=== PATIENT | male | born 1965 | race American Indian/Alaskan Native ===

== ENCOUNTER 2018-04-07 09:07 | Day surgery (SDC) | payer OTHER ==
[2018-04-02 11:40] VITALS: BMI 39.4
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
[~2018-04-07 09:07] MED LIST: LACTATED RINGERS 1,000 ML IV SCH; LIDOCAINE 1% 20 ML VIAL (10MG/ML) FOR IV START INTRADERMA PRN; MIDAZOLAM 2 MG/2 ML VIAL IV PRN
[2018-04-07 11:52] VITALS: TEMP 98.6
[2018-04-07] MEDS ORDERED: PROPOFOL 10 MG/ML 20 ML VIAL IV ONE (12:48)
--- NOTE | 2018-04-07 13:26 | P.PCN ---
Date of Procedure: 04/07/18 Description of Procedure: PREOPERATIVE DIAGNOSIS: Colonoscopy screening, first POSTOPERATIVE DIAGNOSIS: Colonoscopy screening, first Personal history of colon polyps. Multiple tubular adenomas throughout the colon. External hemorrhoids, grade 3. OPERATION: Colonoscopy to the ileocecal valve and appendiceal orifice. Colonoscopy with multiple hot snare polypectomies Colonoscopy with multiple cold forceps biopsies. SURGEON: Maye Kuhn MD. ANESTHESIA: MAC. INDICATIONS: The patient is a 53-year-old male who presents for his first colonoscopy screening. Benefits and risks were described and informed consent was obtained. DESCRIPTION OF PROCEDURE: The patient had undergone Gatorade, MiraLAX and Dulcolax prep. He had been brought into the operating room and laid in the left lateral decubitus position. The prostate was smooth and without abnormality .After adequate intravenous sedation, the rectum was examined with 2% lidocaine jelly. External hemorrhoids were encountered. The rectal tone was within normal limits. No lesions were palpated in the rectal vault. An Olympus colonoscope was advanced until the ileocecal valve and appendiceal orifice were clearly viewed. Abdominal wall pressure was applied to the abdomen to obtain views. The prep was fair with visualization of the mucosal folds. The scope was removed with visualization of each mucosal fold. No large scattered diverticulosis was encountered. Multiple colonic polyps were found and cold forcep biopsy or snare polypectomy. Localize colitis and biopsies were taken of the cecum. Retroflexion of the scope demonstrated grade 1 internal hemorrhoids without active bleeding or inflammation. The colon was desufflated. The patient had tolerated the procedure well. Withdrawal time was over 6 minutes. FINDINGS: Internal hemorrhoids, grade 1 External hemorrhoids, grade 3. No arteriovenous malformations. No large sigmoid diverticulosis Removal of 6 polyps: - Snare polypectomy 60 cm from the anal verge, 8 mm tubular adenoma polyp, descending colon - Snare polypectomy 50 cm from the anal verge, 12 mm flat villous adenoma polyp , descending colon - Snare polypectomy 45 cm from the anal verge, 10 mm tubular adenoma polyp, descending colon - Snare polypectomy 35 cm from the anal verge, 11 mm tubular adenoma polyp, sigmoid colon - Snare polypectomy 20 cm from the anal verge, 12 mm flat villous adenoma polyp , sigmoid colon - Cold forceps biopsy at 70 cm from the anal verge, 5 mm polyp, transverse colon Cold biopsies obtained of the cecum to evaluate for colitis RECOMMENDATIONS: Given severity of tubular adenomas, recommend repeat colonoscopy 1 year, 2019. Plan - Discharge Summary New Discharge Prescriptions: No Action Cetirizine HCl [Zyrtec] 10 mg PO DAILY Budesonide-Formot 160-4.5 Mcg [Symbicort 160-4.5 Mcg Inhaler] 2 puff INHALATION BID Lisinopril-Hctz 10-12.5 mg [Zestoretic 10-12.5] 1 tab PO QAM Discharge Medication List Budesonide-Formot 160-4.5 Mcg [Symbicort 160-4.5 Mcg Inhaler] 2 puff INHALATION BID 04/02/18 [History] Cetirizine HCl [Zyrtec] 10 mg PO DAILY 04/02/18 [History] Lisinopril-Hctz 10-12.5 mg [Zestoretic 10-12.5] 1 tab PO QAM 04/06/18 [History]
[2018-04-07 13:40] VITALS: BP 113/71; PULSE 74; RESP 18
== END 2018-04-07 13:53 | disposition home or self-care (01) ==
LOC: ORWHC2ENDO 09:07
PROVIDERS: ATTEND Surgery Plastic and Reconstructive Surgery
DX: Z12.11 Encounter for screening for malignant neoplasm of colon (principal); D12.3 Benign neoplasm of transverse colon; D12.4 Benign neoplasm of descending colon; D12.5 Benign neoplasm of sigmoid colon; K63.5 Polyp of colon; K64.0 First degree hemorrhoids; K64.2 Third degree hemorrhoids; K21.9 Gastro-esophageal reflux disease without esophagitis; Z86.010 Personal history of colon polyps; J44.9 Chronic obstructive pulmonary disease, unspecified; I10 Essential (primary) hypertension; Z79.51 Long term (current) use of inhaled steroids; Z79.899 Other long term (current) drug therapy; Z88.8 Allergy status to other drugs, medicaments and biological substances; Z88.3 Allergy status to other anti-infective agents; Z88.2 Allergy status to sulfonamides
CPT/HCPCS: 88305; 45380; 45385; J2704

== ENCOUNTER → 2018-11-16 | Outpatient (CLI) | payer OTHER ==
--- NOTE | 2018-11-16 09:09 | XR ---
EXAMINATION TYPE: XR chest 2V DATE OF EXAM: 11/16/2018 COMPARISON: NONE TECHNIQUE: PA and lateral views submitted. HISTORY: Cough FINDINGS: The lungs are clear and there is no pneumothorax, pleural effusion, or focal pneumonia. Hypertrophi c and degenerative change of the spine. There is subsegmental consolidation and small right effusion. Azygos fissure noted. Heart size normal. Report called to the referring physician's office. IMPRESSION: 1. Small right pleural effusion with basilar consolidation. Early pneumonia in the differential diagn osis. Correlate clinically. Otherwise consider mild venous congestion.
== END | disposition home or self-care (01) ==
LOC: RADXRMAIN 08:54
PROVIDERS: ATTEND Otolaryngology
DX: J90 Pleural effusion, not elsewhere classified (principal)
CPT/HCPCS: 71046

== ENCOUNTER → 2018-12-22 | Outpatient (CLI) | payer OTHER ==
--- NOTE | 2018-12-22 15:46 | XR ---
EXAMINATION TYPE: XR chest 2V DATE OF EXAM: 12/22/2018 COMPARISON: 11/16/2018 INDICATION: Pleural effusion TECHNIQUE: Frontal and lateral views of the chest are obtained. FINDINGS: The heart size is normal. The pulmonary vasculature is normal. Some minimal atelectasis at the left costophrenic angle. Posterior pleural effusion may be present. L ungs otherwise appear clear. IMPRESSION: 1. Suggestive of a posterior pleural effusion. 2. Mild atelectasis left costophrenic angle
== END | disposition home or self-care (01) ==
LOC: RADXRMAIN 15:19
PROVIDERS: ATTEND Family Medicine
DX: J98.11 Atelectasis (principal)
CPT/HCPCS: 71046

== ENCOUNTER → 2018-12-24 | Outpatient (CLI) | payer OTHER ==
[2018-12-24 21:30] LABS: Clam IgE <0.10 kU/L; Scallop IgE <0.10 kU/L; Shrimp IgE 0.11 kU/L; Walnut IgE (Food) 0.13 kU/L
[2018-12-24 21:31] LABS: Peanut IgE 0.18 kU/L; Soybean IgE <0.10 kU/L
[2018-12-24 21:32] LABS: Codfish IgE <0.10 kU/L
[2018-12-24 22:45] LABS: Maple (Box Elder) IgE 0.12 kU/L
[2018-12-24 22:48] LABS: Red Top (Bentgrass) IgE <0.10 kU/L
[2018-12-24 22:50] LABS: Elm IgE <0.10 kU/L; Ragweed,Common IgE <0.10 kU/L
[2018-12-24 22:51] LABS: Alternaria alternata IgE <0.10 kU/L; Birch IgE <0.10 kU/L; Cockroach IgE <0.10 kU/L; Oak IgE <0.10 kU/L
[2018-12-24 22:52] LABS: Cat Epith & Dander IgE <0.10 kU/L; Dermato. farinae IgE <0.10 kU/L; Dog Dander IgE 2.63 kU/L
[2018-12-30 23:33] LABS: Alternaria Alternata IgG 5.6 mcg/mL (< 13.6); Aspergillus fumigatus IgG Not detected (Not detected); Aureobasidium pullulans IgG 5.7 mcg/mL (< 13.6); Cladosporium herbarium IgG 19.8 mcg/mL (< 14.7); Phoma ssp. IgG 7.2 mcg/mL (< 6.6); Saccaharomospora viridis Not detected (Not detected); Saccaharopoly. rectivirgula Not detected (Not detected)
== END ==
LOC: LABWHC1 14:24
PROVIDERS: ATTEND Internal Medicine Critical Care Medicine
DX: J45.909 Unspecified asthma, uncomplicated (principal); R05 Cough
CPT/HCPCS: 36415; 82785; 85008; 86001; 86003; 86606; 86609

== ENCOUNTER 2019-03-30 09:09 | Day surgery (SDC) | payer OTHER ==
[2019-03-25 15:39] VITALS: BMI 40.6
[~2019-03-30 09:09] MED LIST changes: -LIDOCAINE 1% 20 ML VIAL (10MG/ML) FOR IV START INTRADERMA PRN; -MIDAZOLAM 2 MG/2 ML VIAL IV PRN
[2019-03-30 09:33] VITALS: TEMP 97.8
[2019-03-30] MEDS ORDERED: LIDOCAINE 1% 20 ML VIAL (10MG/ML) FOR IV START INTRADERMA ONE (09:33)
[2019-03-30] MEDS ORDERED: LACTATED RINGERS 1,000 ML IV ONE (09:33)
[2019-03-30] MEDS ORDERED: PROPOFOL 10 MG/ML 20 ML VIAL IV ONE (10:26)
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
--- NOTE | 2019-03-30 11:05 | P.PCN ---
Date of Procedure: 03/30/19 Description of Procedure: PREOPERATIVE DIAGNOSIS: Personal history of colon polyps. History of multiple tubular adenomas throughout the colon. POSTOPERATIVE DIAGNOSIS: Personal history of colon polyps. History of multiple tubular adenomas throughout the colon. External hemorrhoids, grade 3. Internal hemorrhoids, grade 3. Severe constipation with poor prep OPERATION: Colonoscopy to the ileocecal valve and appendiceal orifice. Colonoscopy with multiple hot snare polypectomies Colonoscopy with multiple cold forceps biopsies. SURGEON: Maye Kuhn MD. ANESTHESIA: MAC. INDICATIONS: The patient is a 54-year-old male who presents for colonoscopy screening. Last colonoscopy was 1 year ago with high risk multiple colon polyps. Benefits and risks were described and informed consent was obtained. DESCRIPTION OF PROCEDURE: The patient had undergone Suprep. He had been brought into the operating room and laid in the left lateral decubitus position. After adequate intravenous sedation, the rectum was examined with 2% lidocaine jelly. External hemorrhoids were encountered. The rectal tone was within normal limits. No lesions were palpated in the rectal vault. The prostate was without abnormality. The prep was poor with immediate solid stool along the rectum and sigmoid colon. An O[place]m pus colonoscope was advanced until the ileocecal valve and appendiceal orifice were clearly viewed. The scope was removed. Easy bruising was identified along the colon with intermittent bleeding. No large mouth diverticulosis was found. Multiple colonic polyps were found and cold forcep biopsy or snare polypectomy. Retroflexion of the scope demonstrated grade 2 internal hemorrhoids without ac tive bleeding or inflammation. The colon was desufflated. The patient had tolerated the procedure well. Withdrawal time was over 6 minutes. FINDINGS: Aronchick preparation quality scale 4 (1-5) Internal hemorrhoids, grade 2 External hemorrhoids, grade 2. No arteriovenous malformations. Diffuse bruising throughout colon with mild bleed Removal of 3 polyps: - Snare polypectomy at ascending colon, 5 mm tubulovillous adenoma polyp, removed with snare not retrieved - Snare polypectomy proximal transverse colon, 6 mm flat villous adenoma polyp, - Cold forceps biopsy at mid transverse colon, 5 mm polyp. No focal colitis. Very poor prep limiting adequate view of the sigmoid colon and rectum Diffuse bruising along skin RECOMMENDATIONS: Repeat colonoscopy in 2 years, 2020 Discontinue to Tumeric, vitamin D, multivitamin for diffuse bruising on skin including bleeding Plan - Discharge Summary New Discharge Prescriptions: New Polyethylene Glycol 3350 [Miralax] 17 gm PO BID #30 packet Discontinued Multivitamins, Thera [Multivitamin (formulary)] 1 tab PO DAILY Turmeric Root Extract [Turmeric] 500 mg PO DAILY Cholecalciferol (Vitamin D3) [Vitamin D3] 2,000 unit PO DAILY No Action Cetirizine HCl [Zyrtec] 10 mg PO DAILY Budesonide-Formot 160-4.5 Mcg [Symbicort 160-4.5 Mcg Inhaler] 2 puff INHALATION BID Ranitidine HCl [Zantac] 150 mg PO HS Montelukast Sodium [Singulair] 10 mg PO DAILY Hydrochlorothiazide [Hydrodiuril] 25 mg PO DAILY Carvedilol [Coreg] 3.125 mg PO BID Albuterol Sulfate [Proair Respiclick] 1 puff PO DIRECTED PRN PRN Reason: sob Discharge Medication List Budesonide-Formot 160-4.5 Mcg [Symbicort 160-4.5 Mcg Inhaler] 2 puff INHALATION BID 04/02/18 [History] Cetirizine HCl [Zyrtec] 10 mg PO DAILY 04/02/18 [History] Albuterol Sulfate [Proair Respiclick] 1 puff PO DIRECTED PRN 03/25/19 [History] Carvedilol [Coreg] 3.125 mg PO BID 03/25/19 [History] Hydrochlorothiazide [Hydrodiuril] 25 mg PO DAILY 03/25/19 [History] Montelukast Sodium [Singulair] 10 mg PO DAILY 03/25/19 [History] Ranitidine HCl [Zantac] 150 mg PO HS 03/25/19 [History] Polyethylene Glycol 3350 [Miralax] 17 gm PO BID #30 packet 03/30/19 [Rx] Follow up Appointment(s)/Referral(s): Maye Kuhn MD [STAFF PHYSICIAN] - 04/05/19 Patient Instructions/Handouts: Colorectal Polyps (DC) Activity/Diet/Wound Care/Special Instructions: STOP TUMERIC, VITAMIN D, MULTIVITAMIN IS CAUSING BLEEDING!!!!!!!!! REPEAT COLONOSCOPY IN 2 YEARS, 2020. Use Miralax daily Discharge Disposition: HOME SELF-CARE
[2019-03-30 11:09] VITALS: RESP 20
[2019-03-30 11:37] VITALS: BP 110/70; PULSE 64
== END 2019-03-30 11:56 | disposition home or self-care (01) ==
LOC: ORWHC2ENDO 09:09
PROVIDERS: ATTEND Surgery Plastic and Reconstructive Surgery
DX: D12.2 Benign neoplasm of ascending colon (principal); D12.3 Benign neoplasm of transverse colon; K64.4 Residual hemorrhoidal skin tags; K64.8 Other hemorrhoids; K21.9 Gastro-esophageal reflux disease without esophagitis; J44.9 Chronic obstructive pulmonary disease, unspecified; I10 Essential (primary) hypertension; K63.89 Other specified diseases of intestine; K92.2 Gastrointestinal hemorrhage, unspecified; E66.01 Morbid (severe) obesity due to excess calories; Z88.3 Allergy status to other anti-infective agents; Z88.2 Allergy status to sulfonamides; Z91.041 Radiographic dye allergy status; Z91.010 Allergy to peanuts; Z91.013 Allergy to seafood; Z88.8 Allergy status to other drugs, medicaments and biological substances; Z91.09 Other allergy status, other than to drugs and biological substances; Z86.010 Personal history of colon polyps; Z79.899 Other long term (current) drug therapy; Z68.41 Body mass index [BMI] 40.0-44.9, adult
CPT/HCPCS: 88305; 45385; 45380; J2704

== ENCOUNTER → 2019-04-05 | Outpatient (CLI) | payer OTHER ==
[2019-04-05 14:28] LABS: INR 1.7 (<1.2); Prothrombin Time 16.6 sec (9.0-12.0)
[2019-04-05 18:17] LABS: Anisocytosis Slight; HCT 38.1 % (39.0-53.0); HGB 12.4 gm/dL (13.0-17.5); MCH 34.1 pg (25.0-35.0); MCHC 32.6 g/dL (31.0-37.0); MCV 104.5 fL (80.0-100.0); Macrocytosis Moderate; Mean Platelet Volume 9.5; RBC 3.65 m/uL (4.30-5.90); RDW 16.4 % (11.5-15.5); WBC 4.2 k/uL (3.8-10.6)
[2019-04-05 18:30] LABS: Platelet Count 65 k/uL (150-450)
[2019-04-05 19:20] LABS: African American GFR (CKD) 122.3 (60.0-200.0); Albumin 2.7 g/dL (3.80-4.90); Albumin/Globulin Ratio 0.63 (1.60-3.17); Anion Gap 7.4 mmol/L (4.00-12.00); Calcium 8.2 mg/dL (8.7-10.3); Carbon Dioxide 29.6 mmol/L (21.6-31.8); Globulin 4.3 g/dL (1.6-3.3); Potassium 3.9 mmol/L (3.5-5.5); Total Bilirubin 3.8 mg/dL (0.2-1.2)
== END | disposition home or self-care (01) ==
LOC: LABWHC1 13:08
PROVIDERS: ATTEND Surgery Plastic and Reconstructive Surgery
DX: R17 Unspecified jaundice (principal)
CPT/HCPCS: 36415; 80053; 85027; 85610

== ENCOUNTER → 2019-04-08 | Outpatient (CLI) | payer OTHER ==
[2019-04-08 19:14] LABS: Hepatitis A Antibody IgM Non-Reactive (Non-Reactive); Hepatitis B Core IgM Non-Reactive (Non-Reactive)
== END | disposition home or self-care (01) ==
LOC: LABWHC1 12:06
PROVIDERS: ATTEND Surgery Plastic and Reconstructive Surgery
DX: K74.60 Unspecified cirrhosis of liver (principal)
CPT/HCPCS: 36415; 80074

== ENCOUNTER → 2019-04-11 | Outpatient (CLI) | payer OTHER ==
--- NOTE | 2019-04-11 14:12 | US ---
EXAMINATION TYPE: US liver DATE OF EXAM: 04/11/2019 COMPARISON: NONE CLINICAL HISTORY: 54-year-old male K74.60 R17 Liver cirrhosis, Jaundice R17. TECHNIQUE: Multiple sonographic images of the right upper quadrant are obtained. FINDINGS: EXAM MEASUREMENTS: Liver Length: 22.4 cm Gallbladder Wall: 0.25 cm CBD: 0.5 cm Right Kidney: 13.5 x 5.3 x 5.6 cm Pancreas: Obscured by bowel gas Liver: Diffusely heterogeneous, this secondarily limits assessment for focal lesion. Nodular contour compatible with cirrhosis. Enlarged. Portal vein is dilated at 1.6 cm. The senior software development engineer comments on h epatofugal flow though this is not as evident on the provided images. Gallbladder: Mildly hydropic. No shadowing calculi or wall thickening. Evidence for sonographic Alvarez's sign: Yes CBD: wnl as visualized Right Kidney: No hydronephrosis or masses seen Mild amount of free fluid visualized in the RLQ, RUQ, LLQ, LUQ IMPRESSION: 1. Hepatomegaly and cirrhosis. The degree of liver heterogeneity on ultrasound limits assessment for focal lesion. 2. Mildly dilated portal vein suggests underlying portal venous hypertension. The senior software development engineer indicat es hepatofugal flow but is not clearly demonstrated on the provided images. Recommend dedicated ultra sound portal vein for further evaluation. 3. Hydropic gallbladder but without gallstones or wall thickening. However, sonographic Alvarez sign i s reported positive. This may be secondary to referred pain. If further imaging evaluation of the ga llbladder is desired, HIDA scan can be considered. 4. Mild abdominal ascites.
--- NOTE | 2019-04-11 14:38 | CT ---
EXAMINATION TYPE: CT abdomen pelvis w con DATE OF EXAM: 04/11/2019 COMPARISON: Same day liver ultrasound. HISTORY: Jaundice for [address] DLP: 3074.1 mGycm, Automated Exposure Control for Dose Reduction was Utilized. CONTRAST: CT scan of the abdomen and pelvis is performed with oral and with IV Contrast, patient injected with 100 mL of Isovue 300. FINDINGS: LUNG BASES: There is bibasilar dependent atelectasis and/or scarring. LIVER/GB: Liver has lobulated peripheral nodular contour with surrounding ascites consistent with und erlying cirrhosis. Gallbladder has distended margins with intraluminal small gallstones. Main portal vein noted patent and not dilated. There are however varices near gastroesophageal junction. No suspi cious intrahepatic mass or intrahepatic or extrahepatic ductal dilatation. PANCREAS: No significant abnormality is seen. SPLEEN: Splenomegaly is identified at 16.4 cm on long axis coronal image 80 with some adjacent ascite s. ADRENALS: No significant abnormality is seen. KIDNEYS: No significant abnormality is seen. BOWEL: No significant abnormality is seen. PROSTATE/SEMINAL VESICLES: No gross abnormality seen. LYMPH NODES: No greater than 1cm abdominal or pelvic lymph nodes are appreciated. OSSEOUS STRUCTURES: Moderate multilevel spurring in the spine. Mild to moderate disc space narrowing with vacuum disc phenomenon L5-S1 level. Multilevel facet arthropathy mid to lower lumbar spine OTHER: Mild to moderate calcified plaque of aorta extends into branch vessels with slight ectasia. Ao rta measures just under 3.0 cm AP diameter axial image 43. Tiny umbilical hernia containing fat and m esenteric vessels axial image 61. Small amount of abdominal and pelvic ascites most prominent left paracolic gutter. Mild diffuse soft tissue anasarca anteriorly. IMPRESSION: Cirrhosis with portal hypertension as detailed above.
== END | disposition home or self-care (01) ==
LOC: RADUSWWP 10:50
PROVIDERS: ATTEND Surgery Plastic and Reconstructive Surgery
DX: K74.60 Unspecified cirrhosis of liver (principal); K76.6 Portal hypertension; R18.8 Other ascites; K82.8 Other specified diseases of gallbladder; Z88.2 Allergy status to sulfonamides; Z88.8 Allergy status to other drugs, medicaments and biological substances
CPT/HCPCS: 76705; 74177; Q9967

== ENCOUNTER 2019-07-21 11:39 | Day surgery (SDC) | payer OTHER ==
[2019-07-19 10:53] VITALS: BMI 40.1
[~2019-07-21 11:39] MED LIST changes: +LIDOCAINE 1% 20 ML VIAL (10MG/ML) FOR IV START INTRADERMA PRN
[2019-07-21 12:03] VITALS: RESP 16; TEMP 97
[2019-07-21 12:07] LABS: HCT 38.9 % (39.0-53.0); HGB 13.3 gm/dL (13.0-17.5); MCH 32.5 pg (25.0-35.0); MCHC 34.2 g/dL (31.0-37.0); Mean Platelet Volume 8.7; RDW 15.2 % (11.5-15.5); WBC 4.7 k/uL (3.8-10.6)
[2019-07-21 12:12] LABS: Platelet Count 68 k/uL (150-450)
[2019-07-21] MEDS ORDERED: fentaNYL (PF) 50 MCG/ML 2 ML AMP ONE (13:08)
[2019-07-21] MEDS ORDERED: PROPOFOL 10 MG/ML 20 ML VIAL IV ONE (13:08)
[2019-07-21] MEDS ORDERED: MIDAZOLAM 2 MG/2 ML VIAL ONE (13:08)
[2019-07-21] MEDS ORDERED: LIDOCAINE 1% INJ 10MG/ML (20 ML MDV) ONE (13:08)
--- NOTE | 2019-07-21 13:39 | P.PCN ---
Date of Procedure: 07/21/19 Description of Procedure: BRIEF HISTORY: 54-year-old male presenting for outpatient EGD. The patient has a history of decompensated alcoholic cirrhosis of the liver was recently diagnosed. Patient is on diuretic therapy with Aldactone and Lasix. His presenting for variceal screening. No prior EGD reported. PROCEDURE PERFORMED: Esophagogastroduodenoscopy with biopsy. PREOPERATIVE DIAGNOSIS: Variceal screening, decompensated cirrhosis, no prior EGD. ESTIMATED BLOOD LOSS: Minimal. IV sedation per anesthesia. PROCEDURE: After informed consent was obtained, the patient was brought into the endoscopy unit. IV sedation was administered by Anesthesia under continuous monitoring. Initially the Olympus GIF-190 video endoscope was inserted into the mouth. Esophagus intubated without any difficulty. It was gradually advanced into the stomach and duodenum and carefully examined. The bulb and the second part of the duodenum appeared normal, with biopsies taken. The scope at this time was withdrawn to the stomach, adequately insufflated with air, and upon careful examination, mucosa of the antrum, body, cardia and the fundus appeared grossly normal, there was however some mild irritation in the future body suggestive of gastritis with biopsies taken, as well as chloral hydrate intensive gastropathy of the body, cardia and fundus. The scope was then withdrawn into the esophagus. The GE junction was located at 39 cm from the incisors. The esophagus appeared normal. There were no erosions or ulcerations seen and the patient tolerated the procedure well. IMPRESSION: 1. Mild gastritis antrum and body, biopsied. 2. Portal hypertensive gastropathy. 3. Duodenal biopsies. RECOMMENDATIONS: The findings of this examination were discussed with the patient and his . Continue current medical management. Repeat EGD in 2-3 years. Continue alcohol abstinence. Follow up with gastroenterology as previously scheduled.
[2019-07-21 14:08] VITALS: BP 110/56; PULSE 59
== END 2019-07-21 14:20 | disposition home or self-care (01) ==
LOC: ORWHC2ENDO 11:39
PROVIDERS: ATTEND Internal Medicine
DX: K29.50 Unspecified chronic gastritis without bleeding (principal); K70.30 Alcoholic cirrhosis of liver without ascites; K76.6 Portal hypertension; K31.89 Other diseases of stomach and duodenum; K21.9 Gastro-esophageal reflux disease without esophagitis; I10 Essential (primary) hypertension; J44.9 Chronic obstructive pulmonary disease, unspecified; R60.0 Localized edema; D69.6 Thrombocytopenia, unspecified; Z88.2 Allergy status to sulfonamides; Z91.041 Radiographic dye allergy status; Z88.8 Allergy status to other drugs, medicaments and biological substances; Z91.013 Allergy to seafood; Z91.048 Other nonmedicinal substance allergy status; Z98.890 Other specified postprocedural states; Z79.51 Long term (current) use of inhaled steroids; Z79.02 Long term (current) use of antithrombotics/antiplatelets; Z79.899 Other long term (current) drug therapy
CPT/HCPCS: 88305; 85027; 43239; J2250; J2001; J3010; J2704

== ENCOUNTER → 2019-08-12 | Outpatient (CLI) | payer OTHER ==
[2019-08-12 11:32] LABS: Basophils # (A) 0.1 k/uL (0-0.2); Basophils % (A) 1 %; Eosinophils # (A) 0.4 k/uL (0-0.7); Eosinophils % (A) 7 %; HCT 40.4 % (39.0-53.0); HGB 13.3 gm/dL (13.0-17.5); INR 1.3 (<1.2); Lymphocytes % (A) 20 %; MCH 31.7 pg (25.0-35.0); MCHC 32.9 g/dL (31.0-37.0); MCV 96.2 fL (80.0-100.0); Monocytes # (A) 0.4 k/uL (0-1.0); Monocytes % (A) 9 %; Neutrophils # (A) 3.1 k/uL (1.3-7.7); Neutrophils % (A) 60 %; Prothrombin Time 13.2 sec (9.0-12.0); RDW 14.5 % (11.5-15.5); WBC 5.1 k/uL (3.8-10.6)
[2019-08-12 11:36] LABS: Platelet Count 71 k/uL (150-450)
[2019-08-12 16:37] LABS: African American GFR (CKD) 115.7 (60.0-200.0); Albumin 3.6 g/dL (3.80-4.90); Anion Gap 8.7 mmol/L (4.00-12.00); BUN/Creat Ratio 17.5 Ratio (12.00-20.00); Calcium 9.5 mg/dL (8.7-10.3); Carbon Dioxide 25.3 mmol/L (21.6-31.8); Globulin 3.6 g/dL (1.6-3.3); Potassium 4.7 mmol/L (3.5-5.5); Total Protein 7.2 g/dL (6.2-8.2)
== END | disposition home or self-care (01) ==
LOC: LABWHC1 11:01
PROVIDERS: ATTEND Internal Medicine
DX: M79.10 Myalgia, unspecified site (principal); K70.31 Alcoholic cirrhosis of liver with ascites
CPT/HCPCS: 36415; 80053; 82140; 82550; 85025; 85610

== ENCOUNTER → 2019-09-13 | Outpatient (CLI) | payer OTHER ==
[2019-09-13 13:56] LABS: INR 1.3 (<1.2)
[2019-09-13 13:57] LABS: Basophils # (A) 0.1 k/uL (0-0.2); Basophils % (A) 2 %; Eosinophils # (A) 0.4 k/uL (0-0.7); Eosinophils % (A) 7 %; HCT 41.7 % (39.0-53.0); Lymphocytes % (A) 22 %; MCH 32.3 pg (25.0-35.0); MCHC 33.6 g/dL (31.0-37.0); MCV 95.9 fL (80.0-100.0); Mean Platelet Volume 7.8; Monocytes # (A) 0.5 k/uL (0-1.0); Monocytes % (A) 10 %; Neutrophils # (A) 2.6 k/uL (1.3-7.7); Neutrophils % (A) 56 %; RBC 4.35 m/uL (4.30-5.90); RDW 14.3 % (11.5-15.5); WBC 4.7 k/uL (3.8-10.6)
[2019-09-13 14:35] LABS: Platelet Count 68 k/uL (150-450)
[2019-09-13 19:15] LABS: African American GFR (CKD) 115.7 (60.0-200.0); Albumin 3.6 g/dL (3.80-4.90); Albumin/Globulin Ratio 0.97 (1.60-3.17); Anion Gap 5.8 mmol/L (4.00-12.00); BUN/Creat Ratio 13.75 Ratio (12.00-20.00); Calcium 9.3 mg/dL (8.7-10.3); Carbon Dioxide 28.2 mmol/L (21.6-31.8); Globulin 3.7 g/dL (1.6-3.3); Potassium 4.6 mmol/L (3.5-5.5); Total Bilirubin 1.9 mg/dL (0.2-1.2); Total Protein 7.3 g/dL (6.2-8.2)
== END ==
LOC: LABWHC1 13:19
PROVIDERS: ATTEND Internal Medicine
DX: K70.31 Alcoholic cirrhosis of liver with ascites (principal)
CPT/HCPCS: 36415; 80053; 82140; 85025; 85610

== ENCOUNTER → 2019-11-08 | Outpatient (CLI) | payer OTHER ==
[2019-11-08 12:51] LABS: INR 1.3 (<1.2)
[2019-11-08 13:23] LABS: Basophils # (A) 0.1 k/uL (0-0.2); Basophils % (A) 1 %; Eosinophils # (A) 0.3 k/uL (0-0.7); Eosinophils % (A) 5 %; HCT 39.9 % (39.0-53.0); HGB 13.3 gm/dL (13.0-17.5); Lymphocytes % (A) 19 %; MCH 31.5 pg (25.0-35.0); MCHC 33.3 g/dL (31.0-37.0); MCV 94.5 fL (80.0-100.0); Mean Platelet Volume 9.3; Monocytes # (A) 0.4 k/uL (0-1.0); Monocytes % (A) 7 %; Neutrophils # (A) 3.4 k/uL (1.3-7.7); Neutrophils % (A) 65 %; RBC 4.22 m/uL (4.30-5.90); WBC 5.2 k/uL (3.8-10.6)
[2019-11-08 13:26] LABS: Platelet Count 65 k/uL (150-450)
[2019-11-08 19:36] LABS: African American GFR (CKD) 115.7 (60.0-200.0); Albumin 3.5 g/dL (3.80-4.90); Albumin/Globulin Ratio 1.03 (1.60-3.17); BUN/Creat Ratio 21.25 Ratio (12.00-20.00); Calcium 9.1 mg/dL (8.7-10.3); Globulin 3.4 g/dL (1.6-3.3); Non-African American GFR(CKD) 99.9 (60.0-200.0); Potassium 4.2 mmol/L (3.5-5.5); Total Bilirubin 1.7 mg/dL (0.2-1.2); Total Protein 6.9 g/dL (6.2-8.2)
== END | disposition home or self-care (01) ==
LOC: LABWHC1 11:44
PROVIDERS: ATTEND Internal Medicine
DX: K70.31 Alcoholic cirrhosis of liver with ascites (principal)
CPT/HCPCS: 36415; 80053; 82140; 85025; 85610

== ENCOUNTER → 2019-12-08 | Outpatient (CLI) | payer OTHER ==
--- NOTE | 2019-12-08 09:24 | US ---
EXAMINATION TYPE: US abdomen complete DATE OF EXAM: 12/08/2019 COMPARISON: NONE CLINICAL HISTORY: Alcoholic cirrhosis of liver w/ascites K70.31. Cirrhosis EXAM MEASUREMENTS: Liver Length: 20.4 cm Gallbladder Wall: .4 cm CBD: .3 cm Spleen: 16.7 cm Right Kidney: 12.6 x 5.5 x 5.3 cm Left Kidney: 11.1 x 4.7 x 3.8 cm Pancreas: Obscured by bowel gas Liver: Hepatomegaly 20cm dilated portal vein is dilated 1.7 cm and appears to have hepatofugal flow. Echogenic thrombus visualized within vein. Gallbladder: Tiny stones seen. Evidence for sonographic Alvarez's sign: No CBD: wnl Spleen: Splenomegaly 16.7 cm Right Kidney: wnl Left Kidney: Hypoechoic area upper pole 2.6 x 2.4 x 2.2 cm. Upper IVC: wnl Abd Aorta: wnl The liver is cirrhotic in morphology. The intrahepatic portion of the IVC and proximal abdominal aor ta are within normal limits. Common bile duct is unremarkable. Kidneys are symmetric and free of hyd ronephrosis. IMPRESSION: 1. Cirrhotic morphology of the enlarged liver with portal vein thrombosis, portal venous hypertension and splenomegaly. Findings were discussed with Dr. Hammer's coroner/medical examiner Katie by Dr. Scott at 9 :20am on 12/08/2019. 2. Left upper pole renal lesion is not definitively cystic and measures 2.6 [address] of the abdomen or enhanced MRI recommended for further evaluation. 3. Cholelithiasis. No sonographic evidence of acute cholecystitis. 4. Obscuration of the pancreas by overlying bowel gas.
== END | disposition home or self-care (01) ==
LOC: RADUSWWP 08:12
PROVIDERS: ATTEND Internal Medicine
DX: K80.20 Calculus of gallbladder without cholecystitis without obstruction (principal); K70.31 Alcoholic cirrhosis of liver with ascites; R16.1 Splenomegaly, not elsewhere classified; R14.3 Flatulence
CPT/HCPCS: 76700

== ENCOUNTER → 2020-01-03 | Outpatient (CLI) | payer OTHER ==
[2020-01-03 13:07] LABS: INR 1.2 (<1.2); Prothrombin Time 12.1 sec (9.0-12.0)
[2020-01-03 13:27] LABS: Basophils # (A) 0.1 k/uL (0-0.2); Basophils % (A) 1 %; Eosinophils # (A) 0.3 k/uL (0-0.7); Eosinophils % (A) 6 %; HCT 40.5 % (39.0-53.0); HGB 13.5 gm/dL (13.0-17.5); Lymphocytes # (A) 1.1 k/uL (1.0-4.8); Lymphocytes % (A) 21 %; MCH 31.2 pg (25.0-35.0); MCHC 33.2 g/dL (31.0-37.0); MCV 93.9 fL (80.0-100.0); Mean Platelet Volume 9.2; Monocytes # (A) 0.5 k/uL (0-1.0); Monocytes % (A) 9 %; Neutrophils # (A) 3.1 k/uL (1.3-7.7); Neutrophils % (A) 59 %; RBC 4.32 m/uL (4.30-5.90); RDW 13.5 % (11.5-15.5); WBC 5.3 k/uL (3.8-10.6)
[2020-01-03 13:31] LABS: Platelet Count 63 k/uL (150-450)
[2020-01-03 20:11] LABS: African American GFR (CKD) 115.7 (60.0-200.0); Albumin 3.6 g/dL (3.80-4.90); Albumin/Globulin Ratio 1.03 (1.60-3.17); Anion Gap 7.7 mmol/L (4.00-12.00); BUN/Creat Ratio 16.25 Ratio (12.00-20.00); Calcium 9.2 mg/dL (8.7-10.3); Carbon Dioxide 27.3 mmol/L (21.6-31.8); Globulin 3.5 g/dL (1.6-3.3); Non-African American GFR(CKD) 99.9 (60.0-200.0); Potassium 4.6 mmol/L (3.5-5.5); Total Bilirubin 1.5 mg/dL (0.2-1.2); Total Protein 7.1 g/dL (6.2-8.2)
== END ==
LOC: LABWHC1 12:17
PROVIDERS: ATTEND Internal Medicine
DX: K74.60 Unspecified cirrhosis of liver (principal)
CPT/HCPCS: 36415; 80053; 82105; 82140; 85025; 85610

== ENCOUNTER → 2020-02-08 | Outpatient (CLI) | payer OTHER ==
[2020-02-08 12:15] LABS: Basophils # (A) 0.1 k/uL (0-0.2); Basophils % (A) 1 %; Eosinophils # (A) 0.3 k/uL (0-0.7); Eosinophils % (A) 5 %; HCT 41.1 % (39.0-53.0); HGB 13.4 gm/dL (13.0-17.5); Lymphocytes # (A) 1.1 k/uL (1.0-4.8); Lymphocytes % (A) 20 %; MCH 30.7 pg (25.0-35.0); MCHC 32.6 g/dL (31.0-37.0); MCV 94.1 fL (80.0-100.0); Mean Platelet Volume 9.5; Monocytes # (A) 0.5 k/uL (0-1.0); Monocytes % (A) 9 %; Neutrophils # (A) 3.5 k/uL (1.3-7.7); Neutrophils % (A) 63 %; RBC 4.36 m/uL (4.30-5.90); RDW 13.5 % (11.5-15.5); WBC 5.6 k/uL (3.8-10.6)
[2020-02-08 12:16] LABS: INR 1.2 (<1.2); Prothrombin Time 12.3 sec (9.0-12.0)
[2020-02-08 12:36] LABS: Platelet Count 70 k/uL (150-450)
[2020-02-08 18:41] LABS: African American GFR (CKD) 114.9 (60.0-200.0); Albumin 3.6 g/dL (3.80-4.90); Albumin/Globulin Ratio 1.06 (1.60-3.17); Anion Gap 10.3 mmol/L (4.00-12.00); BUN/Creat Ratio 13.75 Ratio (12.00-20.00); Calcium 9.7 mg/dL (8.7-10.3); Carbon Dioxide 27.7 mmol/L (21.6-31.8); Globulin 3.4 g/dL (1.6-3.3); Non-African American GFR(CKD) 99.2 (60.0-200.0); Potassium 5.3 mmol/L (3.5-5.5); Total Bilirubin 1.7 mg/dL (0.2-1.2)
== END | disposition home or self-care (01) ==
LOC: LABWHC1 11:57
PROVIDERS: ATTEND Internal Medicine
DX: K74.60 Unspecified cirrhosis of liver (principal)
CPT/HCPCS: 36415; 80053; 82105; 82140; 85025; 85610

== ENCOUNTER → 2020-03-09 | Outpatient (CLI) | payer OTHER ==
[2020-03-09 12:21] LABS: Basophils # (A) 0.1 k/uL (0-0.2); Basophils % (A) 1 %; Eosinophils # (A) 0.3 k/uL (0-0.7); Eosinophils % (A) 6 %; HCT 42.1 % (39.0-53.0); HGB 13.6 gm/dL (13.0-17.5); Lymphocytes % (A) 20 %; MCH 30.6 pg (25.0-35.0); MCHC 32.3 g/dL (31.0-37.0); MCV 94.8 fL (80.0-100.0); Mean Platelet Volume 9.1; Monocytes # (A) 0.5 k/uL (0-1.0); Monocytes % (A) 9 %; Neutrophils # (A) 3.2 k/uL (1.3-7.7); Neutrophils % (A) 62 %; RBC 4.44 m/uL (4.30-5.90); RDW 13.6 % (11.5-15.5); WBC 5.2 k/uL (3.8-10.6)
[2020-03-09 12:35] LABS: INR 1.2 (<1.2)
[2020-03-09 14:21] LABS: Platelet Count 63 k/uL (150-450)
[2020-03-09 16:29] LABS: African American GFR (CKD) 114.9 (60.0-200.0); Albumin 3.6 g/dL (3.80-4.90); Albumin/Globulin Ratio 1.03 (1.60-3.17); Anion Gap 6.6 mmol/L (4.00-12.00); BUN/Creat Ratio 12.5 Ratio (12.00-20.00); Calcium 9.2 mg/dL (8.7-10.3); Carbon Dioxide 25.4 mmol/L (21.6-31.8); Globulin 3.5 g/dL (1.6-3.3); Non-African American GFR(CKD) 99.2 (60.0-200.0); Potassium 4.7 mmol/L (3.5-5.5); Total Protein 7.1 g/dL (6.2-8.2)
== END | disposition home or self-care (01) ==
LOC: LABWHC1 11:50
PROVIDERS: ATTEND Internal Medicine
DX: K74.60 Unspecified cirrhosis of liver (principal)
CPT/HCPCS: 36415; 80053; 82105; 82140; 85025; 85610

== ENCOUNTER → 2020-04-09 | Outpatient (CLI) | payer OTHER ==
--- NOTE | 2020-04-09 10:48 | US ---
EXAMINATION TYPE: US liver DATE OF EXAM: 04/09/2020 COMPARISON: Ultrasound 12/08/2019 CLINICAL HISTORY: 55-year-old male K70.31 ALCOHOLIC CIRRHOSIS. TECHNIQUE: Multiple sonographic images of the right upper quadrant are obtained. FINDINGS: EXAM MEASUREMENTS: Liver Length: 17.7 cm Gallbladder Wall: 0.3 cm CBD: 0.4 cm Right Kidney: 13.2 x 5.7 x 6.1 cm Pancreas: no masses seen Liver: Heterogeneous liver with subtle contour nodularity. Benign cyst noted left lobe = 0.6 x 0.6 x 0.4cm some possible internal echoes in the main and left portal vein are noted with incomplete color flow. Gallbladder: multiple, mobile, shadowing stones are imaged. Gallbladder is mildly distended at 5.2 c m wide. No wall thickening or surrounding fluid. Evidence for sonographic Alvarez's sign: no CBD: wnl Right Kidney: Not imaged IMPRESSION: 1. Cirrhotic morphology of the liver. Aside from a benign 6 mm left lobe cyst, no suspicious liver le viki is seen. 2. Incomplete color flow within the main and left portal vein and some possible internal echoes. Cons ider contrast enhanced CT to exclude portal vein thrombosis. 3. Cholelithiasis. Mildly hydropic gallbladder probably due to fasting state. Clinically correlate. I f concern for early acute cholecystitis, follow-up ultrasound or HIDA scan.
== END | disposition home or self-care (01) ==
LOC: RADUSWWP 08:12
PROVIDERS: ATTEND Internal Medicine
DX: K80.20 Calculus of gallbladder without cholecystitis without obstruction (principal); K74.60 Unspecified cirrhosis of liver
CPT/HCPCS: 76705

== ENCOUNTER 2020-04-12 11:04 | Day surgery (SDC) | payer OTHER ==
[2020-04-11 10:11] VITALS: BMI 44.4
[~2020-04-12 11:04] MED LIST changes: +LIDOCAINE 1% (10MG/ML) FOR IV START INTRADERMA PRN; -LIDOCAINE 1% 20 ML VIAL (10MG/ML) FOR IV START INTRADERMA PRN
[2020-04-12 12:03] VITALS: RESP 16; TEMP 97
[2020-04-12] MEDS ORDERED: LIDOCAINE 1% INJ 10MG/ML (20 ML MDV) ONE (12:19)
[2020-04-12] MEDS ORDERED: PROPOFOL 10 MG/ML 20 ML VIAL IV ONE (12:19)
--- NOTE | 2020-04-12 12:42 | P.PCN ---
Date of Procedure: 04/12/20 Description of Procedure: BRIEF HISTORY: Patient is a 55-year-old pleasant male patient presenting for outpatient EGD for evaluation of cirrhosis. Previously findings of portal hypertensive gastropathy on EGD with no signs of varices, however recent imaging to possible esophageal varices at the GE junction. PROCEDURE PERFORMED: Esophagogastroduodenoscopy. PREOPERATIVE DIAGNOSIS: Cirrhosis. ESTIMATED BLOOD LOSS: Minimal. IV sedation per anesthesia. PROCEDURE: After informed consent was obtained, the patient was brought into the endoscopy unit. IV sedation was administered by Anesthesia under continuous monitoring. Initially the Olympus GIF-190 video endoscope was inserted into the mouth. Esophagus intubated without any difficulty. It was gradually advanced into the stomach and duodenum and carefully examined. The bulb and the second part of the duodenum appeared normal. The scope at this time was withdrawn to the stomach, adequately insufflated with air, and upon careful examination, mucosa of the antrum, body, cardia and the fundus appeared normal, except for diffuse punctate erythema throughout the stomach consistent with mild portal hypertensive gastropathy. The scope was then withdrawn into the esophagus. The GE junction was located at 44 cm from the incisors. The esophagus appeared normal, except for a few short columns of small varices without high risk stigmata for bleeding. There were no erosions or ulcerations seen and the patient tolerated the procedure well. IMPRESSION: 1. Mild portal hypertensive gastropathy. 2. Small esophageal varices. RECOMMENDATIONS: The findings of this examination were discussed with the patient and his family. Okay to resume low sodium diet. Okay to resume medications. Patient is already on Coreg, and no need to start another non-selective beta artem. Follow up in GI clinic as previously scheduled.
[2020-04-12 12:45] VITALS: PULSE 55
[2020-04-12 13:07] VITALS: BP 115/70
== END 2020-04-12 13:23 | disposition home or self-care (01) ==
LOC: ORWHC2ENDO 11:04
PROVIDERS: ATTEND Internal Medicine
DX: K74.60 Unspecified cirrhosis of liver (principal); I85.10 Secondary esophageal varices without bleeding; K76.6 Portal hypertension; K31.89 Other diseases of stomach and duodenum; I10 Essential (primary) hypertension; J44.9 Chronic obstructive pulmonary disease, unspecified; K21.9 Gastro-esophageal reflux disease without esophagitis; Z91.013 Allergy to seafood; Z88.2 Allergy status to sulfonamides; Z88.8 Allergy status to other drugs, medicaments and biological substances; Z79.51 Long term (current) use of inhaled steroids; Z79.899 Other long term (current) drug therapy; Z91.041 Radiographic dye allergy status; Z79.02 Long term (current) use of antithrombotics/antiplatelets; Z98.890 Other specified postprocedural states
CPT/HCPCS: 43235; J2001; J2704

== ENCOUNTER → 2020-05-09 | Outpatient (CLI) | payer OTHER | END | disposition home or self-care (01) | LOC: LABWHC1 10:00 | PROVIDERS: ATTEND Family Medicine | DX: Z20.828 Contact with and (suspected) exposure to other viral communicable diseases (principal) | CPT/HCPCS: U0003; C9803 ==

== ENCOUNTER → 2020-05-11 | Outpatient (CLI) | payer OTHER ==
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
== END | disposition home or self-care (01) ==
LOC: RADCTMAIN 12:09
PROVIDERS: ATTEND Family Medicine
DX: F44.89 Other dissociative and conversion disorders (principal)
CPT/HCPCS: 70470; Q9967

== ENCOUNTER → 2020-05-14 | Outpatient (CLI) | payer OTHER ==
[2020-05-14 09:22] LABS: Basophils % (A) 1 %; Eosinophils # (A) 0.4 k/uL (0-0.7); Eosinophils % (A) 7 %; HCT 38.3 % (39.0-53.0); Lymphocytes % (A) 20 %; MCH 31.5 pg (25.0-35.0); MCV 92.4 fL (80.0-100.0); Mean Platelet Volume 10.7; Monocytes # (A) 0.5 k/uL (0-1.0); Monocytes % (A) 9 %; Neutrophils # (A) 3.3 k/uL (1.3-7.7); Neutrophils % (A) 62 %; RBC 4.14 m/uL (4.30-5.90); WBC 5.4 k/uL (3.8-10.6)
[2020-05-14 10:10] LABS: Platelet Count 54 k/uL (150-450)
[2020-05-14 16:02] LABS: INR 1.19 (0.90-1.11); Prothrombin Time 12.6 sec (9.9-11.9)
[2020-05-14 16:31] LABS: African American GFR (CKD) 121.4 (60.0-200.0); Albumin 3.4 g/dL (3.80-4.90); Albumin/Globulin Ratio 1.06 (1.60-3.17); Anion Gap 5.4 mmol/L (4.00-12.00); BUN/Creat Ratio 18.57 Ratio (12.00-20.00); Calcium 8.9 mg/dL (8.7-10.3); Carbon Dioxide 23.6 mmol/L (21.6-31.8); Globulin 3.2 g/dL (1.6-3.3); Non-African American GFR(CKD) 104.8 (60.0-200.0); Potassium 4.4 mmol/L (3.5-5.5); Total Bilirubin 1.3 mg/dL (0.2-1.2); Total Protein 6.6 g/dL (6.2-8.2)
== END | disposition home or self-care (01) ==
LOC: LABWHC1 08:29
PROVIDERS: ATTEND Nurse Practitioner
DX: K70.31 Alcoholic cirrhosis of liver with ascites (principal)
CPT/HCPCS: 36415; 80053; 85025; 85610

== ENCOUNTER → 2020-10-08 | Outpatient (CLI) | payer OTHER ==
--- NOTE | 2020-10-08 11:24 | US ---
EXAMINATION TYPE: US liver DATE OF EXAM: 10/08/2020 COMPARISON: US, CT CLINICAL HISTORY: K70.31 Alcoholic cirrhosis of liver with Ascites. Patient stated had CT at [facility] confirming MPV thrombosis and is now taking blood thinner; gallstones. EXAM MEASUREMENTS: Liver Length: 20.7 cm Gallbladder Wall: 0.2 cm CBD: 0.4 cm Right Kidney: 11.6 x 6.2 x 5.8 cm Pancreas: hyperechoic, mid and tail obscured by overlying bowel gas Liver: nodular appearance to borders; left lobe cyst not seen this US, enlarged liver Gallbladder: multiple, mobile, shadowing stones are seen Evidence for sonographic Alvarez's sign: no CBD: wnl Right Kidney: No hydronephrosis or masses seen MPV at [facility] Hepatis: incomplete color flow filling seen in Main Portal Vein still suggestive of non occluding DVT. Right and Left Portal Vein are not seen due to large body habitus. IMPRESSION: 1. Findings compatible with cirrhotic liver disease. 2. 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 3. Multiple shadowing gallstones noted.
== END | disposition home or self-care (01) ==
LOC: RADUSWWP 10:12
PROVIDERS: ATTEND Internal Medicine
DX: K80.20 Calculus of gallbladder without cholecystitis without obstruction (principal)
CPT/HCPCS: 76705

== ENCOUNTER 2021-03-20 07:09 | Day surgery (SDC) | payer OTHER ==
[2021-03-15 12:28] VITALS: BMI 43.0
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
[2021-03-20 08:01] VITALS: RESP 16; TEMP 97.2
[2021-03-20 08:04] LABS: Glucose,Whole Blood 94 mg/dL (75-99)
[2021-03-20] MEDS ORDERED: LIDOCAINE 1% INJ 10MG/ML (20 ML MDV) ONE (08:04)
[2021-03-20] MEDS ORDERED: GLYCOPYRROLATE 0.2 MG/ML 2 ML VIAL ONE (08:04)
[2021-03-20] MEDS ORDERED: PROPOFOL 10 MG/ML 20 ML VIAL IV ONE (08:04)
--- NOTE | 2021-03-20 08:42 | P.PCN ---
Date of Procedure: 03/20/21 Description of Procedure: PREOPERATIVE DIAGNOSIS: Personal history of colon polyps Liver cirrhosis Thrombocytopenia Congestive heart failure Morbid obesity due to excess calories, BMI 42.6 POSTOPERATIVE DIAGNOSIS: Tubular adenoma cecum 2 Tubular adenoma ascending colon 2 Tubular adenoma descending colon Tubular adenoma in the transverse colon OPERATION: Colonoscopy to the ileocecal valve and appendiceal orifice, cecum Colonoscopy with hot snare polypectomy SURGEON: Maye Kuhn MD. ANESTHESIA: MAC. INDICATIONS: The patient is an 56-year-old male who presents with multiple high-risk colon adenomas. Last colonoscopy 2 years ago. Benefits and risks were described and informed consent was obtained. DESCRIPTION OF PROCEDURE: The patient had undergone Sutab prep. The patient had been brought into the operating room and laid in the left lateral decubitus position. After adequate intravenous sedation, the rectum was examined with 2% lidocaine jelly. The prostate was unremarkable. No external hemorrhoids were encountered. The rectal tone was within normal limits. No lesions were palpated in the rectal vault. An Olympus colonoscope was advanced until the cecum, ileocecal valve and appendiceal orifice were clearly viewed. The prep was fair. No sigmoid diverticulosis was encountered. Colonic polyps were found and removed. No evidence of focal colitis was found. Retroflexion of the scope demonstrated grade 1 internal hemorrhoids without active bleeding or inflammation. The colon was desufflated. The patient had tolerated the procedure well. Withdrawal time was over 6 minutes. FINDINGS: Aronchick preparation quality scale 3 (1-5) Internal hemorrhoids, grade 1 No external hemorrhoids No arteriovenous malformations. No sigmoid diverticulosis Removal of 5 polyps: - Snare polypectomy ascending colon 2, 5 - 7mm tubulovillous adenoma polyp. - Snare polypectomy cecum x 2, 3 to 8 mm flat villous adenoma polyp. - Snare polypectomy descending colon, 3 mm villous adenoma No focal colitis. Unable to retrieve mid transverse less than 5-mm in size colon polyps 2 due to poor insufflation of colon RECOMMENDATIONS: Repeat colonoscopy 2 years, 2022 Plan - Discharge Summary Discharge Rx Participant: No New Discharge Prescriptions: Continue Budesonide-Formot 160-4.5 Mcg [Symbicort 160-4.5 Mcg Inhaler] 2 puff INHALATION QAM PRN PRN Reason: Shortness Of Breath Montelukast Sodium [Singulair] 10 mg PO DAILY carvediloL [Coreg] 3.125 mg PO QAM Albuterol Sulfate [Proair Respiclick] 1 puff PO DIRECTED PRN PRN Reason: Shortness Of Breath Folic Acid 1 mg PO DAILY Cetirizine HCl 10 mg PO DAILY Furosemide [Lasix] 40 mg PO DAILY Famotidine 20 mg PO HS Spironolactone 100 mg PO DAILY Milk Thistle. 500 mg PO DAILY L.acidoph,Paracasei, B.lactis [Probiotic] 1 each PO DAILY Ketoconazole 2% Shampoo [Nizoral] 1 applic TOPICAL Q3D Flaxseed Oil 1,000 mg PO BID Apixaban [Eliquis] 2.5 mg PO BID Clotrimazole/Betameth Cream [Lotrisone] 1 applic TOPICAL BID PRN PRN Reason: Dry Skin Psyllium Husk [Metamucil] 0.4 gm PO DAILY Empagliflozin [Jardiance] 10 mg PO DAILY Hylands Leg Cramps 1 dose PO DAILY Miralax (Unknown Dose) 1 dose PO DIRECTED Discharge Medication List Budesonide-Formot 160-4.5 Mcg [Symbicort 160-4.5 Mcg Inhaler] 2 puff INHALATION QAM PRN 04/02/18 [History] Albuterol Sulfate [Proair Respiclick] 1 puff PO DIRECTED PRN 03/25/19 [History] Montelukast Sodium [Singulair] 10 mg PO DAILY 03/25/19 [History] carvediloL [Coreg] 3.125 mg PO QAM 03/25/19 [History] Cetirizine HCl 10 mg PO DAILY 07/19/19 [History] Folic Acid 1 mg PO DAILY 07/19/19 [History] Furosemide [Lasix] 40 mg PO DAILY 07/19/19 [History] Famotidine 20 mg PO HS 04/11/20 [History] L.acidoph,Paracasei, B.lactis [Probiotic] 1 each PO DAILY 04/11/20 [History] Milk Thistle. 500 mg PO DAILY 04/11/20 [History] Spironolactone 100 mg PO DAILY 04/11/20 [History] Apixaban [Eliquis] 2.5 mg PO BID 03/15/21 [History] Clotrimazole/Betameth Cream [Lotrisone] 1 applic TOPICAL BID PRN 03/15/21 [History] Empagliflozin [Jardiance] 10 mg PO DAILY 03/15/21 [History] Flaxseed Oil 1,000 mg PO BID 03/15/21 [History] Hylands Leg Cramps 1 dose PO DAILY 03/15/21 [History] Ketoconazole 2% Shampoo [Nizoral] 1 applic TOPICAL Q3D 03/15/21 [History] Miralax (Unknown Dose) 1 dose PO DIRECTED 03/15/21 [History] Psyllium Husk [Metamucil] 0.4 gm PO DAILY 03/15/21 [History] Follow up Appointment(s)/Referral(s): Maye Kuhn MD [STAFF PHYSICIAN] - As Needed Patient Instructions/Handouts: Colorectal Polyps (DC) Activity/Diet/Wound Care/Special Instructions: DO NOT START ELIQUIS UNTIL THURSDAY, MARCH 24. Repeat colonoscopy in 2 years, 2022 Discharge Disposition: HOME SELF-CARE
[2021-03-20 08:59] VITALS: BP 112/70; PULSE 55
== END 2021-03-20 09:20 | disposition home or self-care (01) ==
LOC: ORWHC2ENDO 07:09
PROVIDERS: ATTEND Surgery Plastic and Reconstructive Surgery
DX: Z12.11 Encounter for screening for malignant neoplasm of colon (principal); D12.4 Benign neoplasm of descending colon; D12.0 Benign neoplasm of cecum; D12.2 Benign neoplasm of ascending colon; K64.0 First degree hemorrhoids; I74.8 Embolism and thrombosis of other arteries; J45.909 Unspecified asthma, uncomplicated; E11.9 Type 2 diabetes mellitus without complications; I11.0 Hypertensive heart disease with heart failure; D69.6 Thrombocytopenia, unspecified; I50.9 Heart failure, unspecified; J44.9 Chronic obstructive pulmonary disease, unspecified; K21.9 Gastro-esophageal reflux disease without esophagitis; E78.5 Hyperlipidemia, unspecified; E66.01 Morbid (severe) obesity due to excess calories; Z68.41 Body mass index [BMI] 40.0-44.9, adult; K76.9 Liver disease, unspecified; G47.30 Sleep apnea, unspecified; K76.0 Fatty (change of) liver, not elsewhere classified; K74.60 Unspecified cirrhosis of liver; Z98.890 Other specified postprocedural states; F41.9 Anxiety disorder, unspecified; F32.9 Major depressive disorder, single episode, unspecified; F43.10 Post-traumatic stress disorder, unspecified; Z79.01 Long term (current) use of anticoagulants; Z79.84 Long term (current) use of oral hypoglycemic drugs; Z79.899 Other long term (current) drug therapy; Z88.2 Allergy status to sulfonamides; Z88.8 Allergy status to other drugs, medicaments and biological substances; Z91.048 Other nonmedicinal substance allergy status
CPT/HCPCS: 88305; 45385; J2001; J2704

== ENCOUNTER → 2021-04-01 | Outpatient (CLI) | payer OTHER ==
--- NOTE | 2021-04-02 07:22 | US ---
EXAMINATION TYPE: US abdomen complete DATE OF EXAM: 04/01/2021 COMPARISON: CLINICAL HISTORY: K70.31 ALCOHOLIC CIRRHOSIS OF LIVER WITH ASCITIES. No pain. EXAM MEASUREMENTS: Liver Length: 19.3 cm. Normal is 15.5 cm Gallbladder Wall: 0.3 cm Spleen: 14.7 cm. Normal less than 12.5 cm Right Kidney: 12.4 x 5.3 x 5.3 cm Left Kidney: 12.1 x 5.2 x 5.6 cm Limited visualization due to patient body's habitus and overlying bowel gas Pancreas: Tail obscured by overlying bowel gas. Body = 2.5 cm Liver: Enlarged in size. Coarse. Heterogenous and nodular. Portal vein not well visualized but jovon ears patent. Gallbladder: Multiple mobile stones Evidence for sonographic Alvarez's sign: neg CBD: Obscured by overlying bowel gas Spleen: Enlarged in size Right Kidney: wnl Left Kidney: Upper pole circular lesion = 2.7 x 2.5 x 2.4 cm. Lower pole anterior prominent area, l esion vs dromedary hump= 2.6 x 3.1 x 2.4 cm Upper IVC: wnl Abd Aorta: Obscured by overlying bowel gas IMPRESSION: 1. Hepatomegaly with heterogenous appearance. Findings can be compatible with fatty infiltration of l iver. 2. Cholelithiasis. 3. Splenomegaly. 4. Masslike area within the cortex inferior left kidney measuring 2.6 cm. Additional workup with cont rast CT abdomen pelvis is recommended
== END | disposition home or self-care (01) ==
LOC: RADUSWWP 11:05
PROVIDERS: ATTEND Internal Medicine
DX: K70.31 Alcoholic cirrhosis of liver with ascites (principal); K80.20 Calculus of gallbladder without cholecystitis without obstruction; R16.2 Hepatomegaly with splenomegaly, not elsewhere classified
CPT/HCPCS: 76700

== ENCOUNTER → 2021-05-31 | Outpatient (CLI) | payer OTHER ==
[2021-05-31 11:30] LABS: African American GFR (CKD) >90 (>60 ml/min/1.73 sqM); Blood Urea Nitrogen 17 mg/dL (9-20); Non-African American GFR(CKD) >90 (>60 ml/min/1.73 sqM)
--- NOTE | 2021-06-02 19:59 | CT ---
EXAMINATION TYPE: CT abdomen pelvis wo/w con DATE OF EXAM: 05/31/2021 COMPARISON: 04/11/2019 and ultrasound 04/01/2021 HISTORY: 56-year-old male R93.422, Abnormal findings kidney. TECHNIQUE: Contiguous axial scanning of the abdomen and pelvis before and after administration of 100 ml Isovue 300 IV contrast. Delayed images through the kidneys and coronal/sagittal reconstructions performed. CT DLP: 4757.2 mGycm Automated exposure control for dose reduction was used. FINDINGS: Heart borderline enlarged without pericardial effusion. Strandy atelectasis in the lower lungs. No pl eural effusion. Large gastroesophageal varices are present. Additional collaterals noted in the gastrohepatic ligamen t region and with a splenorenal shunt noted. Possible 3.0 cm rounded intraluminal filling defect within the posterior gastric fundus, refer to axi al image 17. Liver shows cirrhotic, nodular contour. No suspicious washout is clearly identified. Portal venous sy stem appears patent. No biliary ductal dilatation. Gallbladder mildly hydropic and 5.7 cm wide with small layering calculi. Adrenal glands, right kidney, and spleen show no gross abnormality. Spleen enlarged at 16.4 cm. There is a 3.4 cm exophytic hypodense lesion from upper pole of the left kidney that shows intermedia te attenuation of 31 Hounsfield units. No changing density on the postcontrast or delayed kidney imag es. Findings suggest a mildly complicated cyst. There is a focal contour lobulation along the lateral mid to lower pole of the left kidney measuring approximately 3.4 cm, axial image 43. The overall enhancement here is similar to the remaining renal parenchyma suggesting a lobulation rather than mass. Precautionary ultrasound follow-up is tito mmended. Retroaortic left renal vein. No dilated small bowel, free fluid, or free air. Mild fusiform aneurysm infrarenal abdominal aorta 3.3 cm versus 3.2 cm, previously. No mesenteric or retroperitoneal lymphadenopathy. Small fatty umbilical hernia. Redundant sigmoid colon. No significant stool burden. Oral contrast has progressed to the rectum. No pericolonic inflammatory change. Bladder is urine distended. Prostate gland measures 4.5 cm wide. No abnormal fluid collection in the pelvis or pelvic lymphadenopathy. Bones: Mild to moderate degenerative change of the hips. Degenerative anterior spurring at the SI meagan nts. Moderate degenerative disc disease L5-S1. Hypertrophic facet arthropathy lower lumbar spine. IMPRESSION: 1. CIRRHOSIS. Evidence of portal venous hypertension characterized by lower gastroesophageal varices, left upper quadrant collaterals, splenorenal shunt, and splenomegaly at 16.4 cm. 2. A benign 3.4 cm exophytic, mildly complicated cyst from the upper pole of the left kidney. 3. Additional focal 3.4 cm contour lobulation lateral mid to lower pole of the left kidney correspond ing to the questioned ultrasound finding seems to be developmental variation. No enhancing mass is id entified here. Precautionary 6 month follow-up renal ultrasound to ensure a stable appearance. 4. Possible 3.0 cm rounded intraluminal filling defect within the posterior gastric fundus. A large g astric varix is possible. Direct visualization to exclude a suspicious intraluminal mass. CT follow-u p as clinically indicated. 5. Hydropic gallbladder with small layering calculi. No surrounding inflammation to suggest acute cho lecystitis. Hydropic change may be due to fasting state. Clinically correlate.
== END | disposition home or self-care (01) ==
LOC: RADCTMAIN 09:35
PROVIDERS: ATTEND Internal Medicine
DX: K74.60 Unspecified cirrhosis of liver (principal); R16.1 Splenomegaly, not elsewhere classified; N28.1 Cyst of kidney, acquired
CPT/HCPCS: 82565; 84520; 74178; 36415; Q9967 ×2

== ENCOUNTER → 2021-09-04 | Outpatient (CLI) | payer OTHER ==
[2021-09-04 20:37] LABS: Basophils # (A) 0.05 X 10*3/uL (0.00-0.10); Eosinophils # (A) 0.29 X 10*3/uL (0.04-0.35); Eosinophils % (A) 5.8 %; HCT 42.5 % (39.6-50.0); HGB 13.9 g/dL (13.0-17.0); Lymphocytes # (A) 0.99 X 10*3/uL (0.90-5.00); Lymphocytes % (A) 19.9 %; MCH 31.4 pg (27.0-32.0); MCHC 32.7 g/dL (32.0-37.0); MCV 96.2 fL (80.0-97.0); Mean Platelet Volume 11.8 fL (9.5-12.2); Monocytes # (A) 0.75 X 10*3/uL (0.20-1.00); Monocytes % (A) 15.1 %; Neutrophils # (A) 2.88 X 10*3/uL (1.80-7.70); Neutrophils % (A) 57.8 %; Platelet Count 74 X 10*3/uL (140-440); RBC 4.42 X 10*6/uL (4.40-5.60); RDW 13.9 % (11.5-14.5); WBC 4.98 X 10*3/uL (4.50-10.00)
[2021-09-05 00:55] LABS: African American GFR (CKD) 108.9 (60.0-200.0); Albumin 3.9 g/dL (3.8-4.9); Albumin/Globulin Ratio 1.18 (1.60-3.17); Anion Gap 10.1 mmol/L (4.00-12.00); BUN/Creat Ratio 18.08 Ratio (12.00-20.00); Blood Urea Nitrogen 16.2 mg/dL (9.0-27.0); Calcium 9.3 mg/dL (8.7-10.3); Carbon Dioxide 23.6 mmol/L (21.6-31.8); Globulin 3.3 g/dL (1.6-3.3); Potassium 4.9 mmol/L (3.5-5.5); Total Bilirubin 1.4 mg/dL (0.30-1.20); Total Protein 7.2 g/dL (6.2-8.2)
== END | disposition home or self-care (01) ==
LOC: LABWHC1 14:27
PROVIDERS: ATTEND Internal Medicine Gastroenterology
DX: K70.31 Alcoholic cirrhosis of liver with ascites (principal)
CPT/HCPCS: 36415; 80053; 82105; 85025

== ENCOUNTER 2021-09-23 13:34 | Emergency (ER) | payer OTHER ==
[2021-09-23 14:26] LABS: Basophils % (A) 0 %; Eosinophils # (A) 0.1 k/uL (0-0.7); Eosinophils % (A) 1 %; HCT 41.9 % (39.0-53.0); HGB 14.5 gm/dL (13.0-17.5); Lymphocytes # (A) 0.4 k/uL (1.0-4.8); Lymphocytes % (A) 3 %; MCH 30.8 pg (25.0-35.0); MCHC 34.7 g/dL (31.0-37.0); MCV 88.8 fL (80.0-100.0); Mean Platelet Volume 10.7; Monocytes % (A) 6 %; Neutrophils # (A) 13.3 k/uL (1.3-7.7); Neutrophils % (A) 89 %; RBC 4.72 m/uL (4.30-5.90); RDW 13.4 % (11.5-15.5); WBC 14.8 k/uL (3.8-10.6)
[2021-09-23 14:37] LABS: Potassium 4.7 mmol/L (3.5-5.1)
[2021-09-23 14:38] LABS: ALT 34 U/L (4-49); AST 35 U/L (17-59); African American GFR (CKD) >90 (>60 ml/min/1.73 sqM); Albumin 3.4 g/dL (3.5-5.0); Alkaline Phosphatase 74 U/L (38-126); Anion Gap 9 mmol/L; Blood Urea Nitrogen 19 mg/dL (9-20); Calcium 8.9 mg/dL (8.4-10.2); Carbon Dioxide 19 mmol/L (22-30); Chloride 103 mmol/L (98-107); Glucose 137 mg/dL (74-99); Non-African American GFR(CKD) >90 (>60 ml/min/1.73 sqM); Sodium 131 mmol/L (137-145); Total Protein 7.4 g/dL (6.3-8.2)
[2021-09-23 14:39] LABS: INR 1.2 (<1.2); Prothrombin Time 12.2 sec (9.0-12.0)
[2021-09-23 14:42] LABS: Platelet Count 69 k/uL (150-450)
--- NOTE | 2021-09-23 15:45 | XR ---
EXAMINATION TYPE: XR chest 2V DATE OF EXAM: 09/23/2021 COMPARISON: 12/22/2018 INDICATION: COVID TECHNIQUE: Single frontal view of the chest is obtained. FINDINGS: The heart size is normal. The pulmonary vasculature is normal. Scattered infiltrates are present slightly greater at the right lung base. Findings could be compatib le with atypical pneumonia. IMPRESSION: 1. Mild scattered infiltrates greatest at the right lung base can be compatible with atypical pneumon ia
[2021-09-23] MEDS ORDERED: ACETAMINOPHEN TAB 500 MG TAB PO STA (16:28)
[2021-09-23] MEDS ORDERED: ALBUTEROL HFA INHALER INHALATION STA (16:28)
[2021-09-23] MEDS ORDERED: IBUPROFEN 800 MG TAB PO STA (16:29)
[2021-09-23] MEDS ORDERED: diphenhydrAMINE 50 MG/ML 1 ML VIAL IVP STA (16:45)
[2021-09-23] MEDS ORDERED: FAMOTIDINE 20 MG/2 ML VIAL IV STA (16:45)
[2021-09-23] MEDS ORDERED: methylPREDNISolone SOD SUCCI 125 MG/2 ML VIAL IV STA (16:45)
--- NOTE | 2021-09-23 18:11 | CT ---
EXAMINATION TYPE: CT chest angio for PE DATE OF EXAM: 09/23/2021 COMPARISON: None HISTORY: Follow up scan. CT DLP: 881.1 mGycm Automated exposure control for dose reduction was used. CONTRAST: CT Chest for pulmonary embolism performed with with IV Contrast, patient injected with 100 mL of Isov ue 370. FINDINGS: LUNGS: Scattered groundglass opacities throughout the lungs the more consolidative opacity in the pos terior sulci left greater than right. The visualized airways are clear. Azygous fissure. MEDIASTINUM: There is satisfactory enhancement of the pulmonary artery and its branches, there is no CT evidence for pulmonary embolism. There are no greater than 1 cm hilar or mediastinal lymph nodes. Heart is borderline enlarged. No pericardial effusion is seen. OTHER: Gynecomastia. IMPRESSION: 1. No pulmonary embolus. 2. Scattered groundglass opacities throughout the lungs with more consolidative opacity in the lung b ases. Findings are likely on the basis of infectious/inflammatory etiology.
[2021-09-23 18:52] VITALS: BP 129/73; PULSE 70; RESP 19; TEMP 97.9
[2021-09-23] MEDS ORDERED: SODIUM CHLORIDE 0.9% 50 ML IVPB ONE (19:30)
[2021-09-23] MEDS ORDERED: CASIRIVIMAB/IMDEVIMAB (EUA) 1,200 MG in SODIUM CHLORIDE 0.9% 100 ML IVPB ONE (19:30)
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
== END 2021-09-23 21:43 | disposition home or self-care (01) ==
LOC: EC 13:34
DX: U07.1 COVID-19 (principal); J12.82 Pneumonia due to coronavirus disease 2019; D69.6 Thrombocytopenia, unspecified; E11.9 Type 2 diabetes mellitus without complications; J44.9 Chronic obstructive pulmonary disease, unspecified; E78.5 Hyperlipidemia, unspecified; K21.9 Gastro-esophageal reflux disease without esophagitis; Z88.2 Allergy status to sulfonamides; Z88.8 Allergy status to other drugs, medicaments and biological substances; Z91.09 Other allergy status, other than to drugs and biological substances; Z79.51 Long term (current) use of inhaled steroids; Z79.84 Long term (current) use of oral hypoglycemic drugs; Z79.899 Other long term (current) drug therapy
CPT/HCPCS: 36415; 94640; 93005; 85379; 83880; 80053; 83605; 84484; 85025; 85610; 85730; 71046; 71275; 99285; 96374; 96375; J1200; J2930; Q9967; Q0243

== ENCOUNTER → 2022-05-28 | Outpatient (CLI) | payer OTHER ==
[2022-05-28 18:18] LABS: Albumin/Globulin Ratio 1.25 (1.60-3.17); Anion Gap 11.1 mmol/L (10.00-18.00); BUN/Creat Ratio 11.67 Ratio (12.00-20.00); Blood Urea Nitrogen 10.5 mg/dL (9.0-27.0); Calcium 9.1 mg/dL (8.7-10.3); Carbon Dioxide 24.9 mmol/L (20.0-27.5); Globulin 3.2 g/dL (1.6-3.3); Non-African American GFR(CKD) 93.2 (60.0-200.0); Potassium 3.9 mmol/L (3.5-5.5); Total Bilirubin 1.3 mg/dL (0.30-1.20); Total Protein 7.2 g/dL (6.2-8.2)
[2022-05-28 18:56] LABS: Basophils # (A) 0.03 X 10*3/uL (0.00-0.10); Basophils % (A) 0.7 %; Eosinophils # (A) 0.15 X 10*3/uL (0.04-0.35); Eosinophils % (A) 3.7 %; HCT 45.4 % (39.6-50.0); HGB 14.6 g/dL (13.0-17.0); Immature Grans, Automated 0.5 %; Immature Platelet Fraction 12.4 % (1.1-6.1); Lymphocytes # (A) 0.78 X 10*3/uL (0.90-5.00); MCHC 32.2 g/dL (32.0-37.0); MCV 90.3 fL (80.0-97.0); Mean Platelet Volume 12.7 fL (9.5-12.2); Monocytes # (A) 0.36 X 10*3/uL (0.20-1.00); Monocytes % (A) 8.8 %; NRBC Per 100 WBC 0 /100 WBCS (0.0-0.0); Neutrophils # (A) 2.76 X 10*3/uL (1.80-7.70); Neutrophils % (A) 67.3 %; Platelet Count 74 X 10*3/uL (140-440); RBC 5.03 X 10*6/uL (4.40-5.60); RDW 14.3 % (11.5-14.5)
[2022-05-28 19:22] LABS: INR 1.07 (0.90-1.11); Prothrombin Time 12.1 sec (9.9-11.9)
== END | disposition home or self-care (01) ==
LOC: LABWHC1 11:27
PROVIDERS: ATTEND Internal Medicine Gastroenterology
DX: K70.31 Alcoholic cirrhosis of liver with ascites (principal)
CPT/HCPCS: 36415; 80053; 82105; 85025; 85610

== ENCOUNTER → 2022-08-08 | Outpatient (CLI) | payer OTHER ==
--- NOTE | 2022-08-08 16:40 | US ---
EXAMINATION TYPE: US liver DATE OF EXAM: 08/08/2022 COMPARISON: NONE CLINICAL HISTORY: K70.31 ALCOHOLIC CIRRHOSIS. obese patient with known cirrhosis TECHNIQUE: Multiple sonographic images of the right upper quadrant are obtained. FINDINGS: EXAM MEASUREMENTS: Liver Length: 20.7 cm Gallbladder Wall: 0.3 cm CBD: 0.5 cm Right Kidney: 12.2 x 5.1 x 6.3 cm SUPERVISOR TUBING NOTES:large habitus Pancreas: portion seen appear wnl Liver: enlarged, difficult to penetrate Gallbladder: small dependant stones seen, borderline wall thickness. No pericholecystic fluid is Evidence for sonographic Alvarez's sign: no CBD: wnl Right Kidney: wnl IMPRESSION: 1. Hepatomegaly with mild to moderate fatty infiltration of the liver. 2. Cholelithiasis. There is borderline wall thickening is 0.3 cm. Consider acute cholecystitis.
== END | disposition home or self-care (01) ==
LOC: RADUSWWP 11:12
PROVIDERS: ATTEND Internal Medicine Gastroenterology
DX: K70.31 Alcoholic cirrhosis of liver with ascites (principal)
CPT/HCPCS: 76705

== ENCOUNTER 2022-08-15 09:37 | Day surgery (SDC) | payer OTHER ==
[2022-08-07 10:50] VITALS: BMI 45.0
[2022-08-15 10:23] VITALS: PULSE 59; TEMP 98.1
[2022-08-15] MEDS: LACTATED RINGERS 1,000 ML IV SCH ×2 (10:26→11:03)
[2022-08-15 10:29] LABS: Glucose,Whole Blood 104 mg/dL (70-110)
[2022-08-15] MEDS ORDERED: fentaNYL (PF) 50 MCG/ML 2 ML AMP ONE (11:02)
[2022-08-15] MEDS ORDERED: KETAMINE 10 MG/ML 20 ML VIAL ONE (11:02)
[2022-08-15] MEDS ORDERED: PROPOFOL 10 MG/ML 20 ML VIAL IV ONE (11:02)
[2022-08-15] MEDS ORDERED: MIDAZOLAM 2 MG/2 ML VIAL ONE (11:02)
[2022-08-15] MEDS ORDERED: LIDOCAINE 2% INJ 20 MG/ML (2 ML VIAL) ONE (11:02)
--- NOTE | 2022-08-15 11:20 | P.PCN ---
Date of Procedure: 08/15/22 Procedure(s) Performed: BRIEF HISTORY: Patient is a 57-year-old, pleasant, white male scheduled for an upper endoscopy as a part of screening for esophageal varices. Patient has history of alcohol cirrhosis of the liver diagnosed 3 years ago. Last EGD 3 years ago did not show any evidence of(. PROCEDURE PERFORMED: Esophagogastroduodenoscopy. PREOPERATIVE DIAGNOSIS: History of liver cirrhosis/screening for varices. IV sedation per anesthesia. PROCEDURE: After informed consent was obtained, the patient was brought into the endoscopy unit. IV sedation was administered by Anesthesia under continuous monitoring. Initially the Olympus GIF-140 video endoscope was inserted into the mouth. Esophagus intubated without any difficulty. It was gradually advanced into the stomach and duodenum and carefully examined. The bulb and the second part of the duodenum appeared normal. The scope at this time was withdrawn to the stomach, adequately insufflated with air, and upon careful examination, mucosa of the antrum, body, had changes consistent with mild to moderate: Hypertensive gastropathy. On retroflexion the large gastric fundal varices identified. The scope was then withdrawn into the esophagus. The GE junction was located at 39 cm from the incisors. The esophagus appeared normal. There w ere no erosions or ulcerations seen. Very small distal esophageal varices seen and the patient tolerated the procedure well. IMPRESSION: 1. Large gastric fundal varices. 2. Very small esophageal varices 3. Mild o moderate portal hypertensive gastropathy. RECOMMENDATIONS: The findings of this examination were discussed with the patient as well as his family. He will be started on nonselective beta artem with Inderal 10 mg 4 times daily and he'll be seen in office in 2-3 weeks..
[2022-08-15 11:24] VITALS: BP 118/75
[2022-08-15 11:43] VITALS: RESP 16
== END 2022-08-15 12:28 | disposition home or self-care (01) ==
LOC: ORWHC2ENDO 09:37
PROVIDERS: ATTEND Internal Medicine Gastroenterology
DX: K70.30 Alcoholic cirrhosis of liver without ascites (principal); I10 Essential (primary) hypertension; J44.9 Chronic obstructive pulmonary disease, unspecified; G47.33 Obstructive sleep apnea (adult) (pediatric); E66.01 Morbid (severe) obesity due to excess calories; E11.9 Type 2 diabetes mellitus without complications; I85.10 Secondary esophageal varices without bleeding; K31.89 Other diseases of stomach and duodenum; K76.6 Portal hypertension
CPT/HCPCS: 43235; J2250; J3010; J2704; J2001

== ENCOUNTER → 2022-09-08 | Outpatient (CLI) | payer MEDICARE, OTHER ==
--- NOTE | 2022-09-08 12:06 | CT ---
EXAMINATION TYPE: CT brain wo con DATE OF EXAM: 09/08/2022 COMPARISON: 05/11/2020 HISTORY: Right sided headache. CT DLP: 1232.1 mGycm Automated exposure control for dose reduction was used. FINDINGS: Moderate generalized degenerative change of the greater frontal lobe on. Area of encephalomalacia inv olving the left frontal lobe. Correlate for previous infarction. Findings similar to prior exam. Calvarium intact. Previous surgery involving the left frontal calvarium. Orbits are symmetric. Nasal septal deviation. IMPRESSION: 1. DEGENERATIVE AND NONSPECIFIC WHITE MATTER CHANGES MOST TYPICAL OF REMOTE ISCHEMIA. 2. ENCEPHALOMALACIA LEFT FRONTAL LOBE STABLE FROM PRIOR EXAM.
== END | disposition home or self-care (01) ==
LOC: RADCTMAIN 11:31
PROVIDERS: ATTEND Family Medicine
DX: G31.9 Degenerative disease of nervous system, unspecified (principal); G93.89 Other specified disorders of brain
CPT/HCPCS: 70450

== ENCOUNTER → 2023-01-26 | Outpatient (CLI) | payer MEDICARE, OTHER ==
--- NOTE | 2023-01-26 12:08 | US ---
EXAMINATION TYPE: US liver DATE OF EXAM: 01/26/2023 COMPARISON: US 08/08/22 CLINICAL HISTORY: K70.31 ALCOHOLIC CIRRHOSIS. Alcoholic cirrhosis. TECHNIQUE: Multiple sonographic images of the right upper quadrant are obtained. FINDINGS: EXAM MEASUREMENTS: Liver Length: 19.1 cm Gallbladder Wall: 0.29 cm CBD: Obscured Right Kidney: 12.9 x 6.8 x 6.0 cm HAND ROUTER OPERATOR NOTES: Limited due to patient body habitus and overlying bowel gas. Pancreas: Not well seen. Liver: Appears enlarged. Appears heterogeneous with increased attenuation and echogenicity. Gallbladder: *Multiple hyperechoic foci with posterior shadowing seen within the gallbladder. Evidence for sonographic Alvarez's sign: No CBD: Obscured Right Kidney: Enlarged. Hypoechoic area seen lower pole: 0.7 x 0.7 x 0.6 cm. IMPRESSION: 1. Hepatomegaly. Some mild fatty infiltration appears to be present. 2. Tiny cortical renal cyst inferior right kidney. 3. Cholelithiasis
== END | disposition home or self-care (01) ==
LOC: LABWHC1 11:19
PROVIDERS: ATTEND Internal Medicine Gastroenterology
DX: K70.30 Alcoholic cirrhosis of liver without ascites (principal); K80.20 Calculus of gallbladder without cholecystitis without obstruction
CPT/HCPCS: 76705

== ENCOUNTER → 2023-06-12 | Outpatient (CLI) | payer MEDICARE, OTHER ==
--- NOTE | 2023-06-12 10:35 | US ---
EXAMINATION TYPE: US liver DATE OF EXAM: 06/12/2023 COMPARISON: NONE CLINICAL INDICATION: Male, 58 years old with history of K70.31 alcholic cirrhosis of liver w/ascites; Cirrhosis of liver f/u TECHNIQUE: Multiple sonographic images of the right upper quadrant are obtained. FINDINGS: EXAM MEASUREMENTS: Liver Length: 15.4 cm Gallbladder Wall: 0.3 cm CBD: 0.4 cm Right Kidney: 12.4x5.2x6.6 cm SUPERVISOR ESTIMATOR AND DRAFTER NOTES: Pancreas: mostly obscured by overlying bowel Liver: upper limits, heterogenous, slightly nodular contour Gallbladder: gravel like cholelithiasis again seen Evidence for sonographic Alvarez's sign: No CBD: wnl Right Kidney: tiny inferior pole cyst again seen: 0.5x0.4x0.6 exam slightly limited by bowel gas and body habitus IMPRESSION: 1. Cholelithiasis. 2. Slightly nodular hepatic contour. Underlying cirrhotic liver disease is difficult to exclude. Viky elate with adequate function testing.
[2023-06-13 00:49] LABS: Basophils # (A) 0.04 X 10*3/uL (0.00-0.10); Basophils % (A) 0.7 %; Eosinophils # (A) 0.12 X 10*3/uL (0.04-0.35); Eosinophils % (A) 2.1 %; HCT 47.7 % (39.6-50.0); HGB 15.3 d/dL (13.0-17.0); Immature Platelet Fraction 11.3 % (1.1-6.1); Lymphocytes # (A) 0.71 X 10*3/uL (0.90-5.00); Lymphocytes % (A) 12.7 %; MCH 30.7 pg (27.0-32.0); MCHC 32.1 d/dL (32.0-37.0); MCV 95.8 FL (80.0-97.0); Mean Platelet Volume 13.4 FL (9.5-12.2); Monocytes # (A) 0.64 X 10*3/uL (0.20-1.00); Monocytes % (A) 11.4 %; NRBC Per 100 WBC 0 X 10*3/uL (0.00-0.01); Neutrophils # (A) 4.06 X 10*3/uL (1.80-7.70); Neutrophils % (A) 72.7 %; Platelet Count 65 X 10*3/uL (140-440); RBC 4.98 X 10*6/uL (4.40-5.60); RBC Morphology Normal (Normal); RDW 13.5 % (11.5-14.5); WBC 5.59 X 10*3/uL (4.50-10.00)
[2023-06-13 03:14] LABS: BUN/Creat Ratio 12.36 Ratio (12.00-20.00); Blood Urea Nitrogen 13.6 mg/dL (9.0-27.0); Glucose 91 mg/dL (70-110)
[2023-06-13 03:15] LABS: ALT 22 U/L (10-49); AST 29 U/L (14-35); Albumin/Globulin Ratio 1.38 Ratio (1.60-3.17); Alkaline Phosphatase 80 U/L (41-126); Calcium 9.3 mg/dL (8.7-10.3); Carbon Dioxide 23.1 mmol/L (21.6-31.8); Chloride 106 mmol/L (96-109); Globulin 2.9 d/dL (1.6-3.3); Potassium 4.7 mmol/L (3.5-5.5); Sodium 139 mmol/L (135-145); Total Bilirubin 1.8 mg/dL (0.3-1.2); Total Protein 6.9 d/dL (6.2-8.2)
== END | disposition home or self-care (01) ==
LOC: RADUSWWP 09:35
PROVIDERS: ATTEND Internal Medicine Gastroenterology
DX: K70.31 Alcoholic cirrhosis of liver with ascites (principal); K80.20 Calculus of gallbladder without cholecystitis without obstruction; K76.89 Other specified diseases of liver
CPT/HCPCS: 76705; 80053; 82105; 85025

== ENCOUNTER → 2023-09-29 | Outpatient (CLI) | payer MEDICARE, OTHER ==
--- NOTE | 2023-11-05 13:16 | EM ---
EVENT MONITOR This is a 30-day event monitor. INDICATIONS: Palpitations, underlying rhythm is sinus. There were episodes of sinus bradycardia with heart rate of 54 beats per minute. There were episodes of sinus tachycardia. There is a short self-limited run of paroxysmal atrial tachycardia and some PACs were also noted. CONCLUSION: As above. MMODL / IJN: [id number] /
== END | disposition home or self-care (01) ==
LOC: RADECHMAIN 07:34
PROVIDERS: ATTEND Family Medicine
DX: I47.19 Other supraventricular tachycardia (principal); I49.1 Atrial premature depolarization; R00.2 Palpitations
CPT/HCPCS: 93270

== ENCOUNTER → 2023-11-13 | Outpatient (CLI) | payer MEDICARE, OTHER ==
--- NOTE | 2023-11-13 16:25 | US ---
EXAMINATION TYPE: US liver DATE OF EXAM: 11/13/2023 COMPARISON: US 06/12/2023 CLINICAL INDICATION: Male, 58 years old with history of K70.31 ALCOHOLIC CIRRHOSIS OF LIVER WITH ASCI LUIS FELIPE; Alcoholic cirrhosis. TECHNIQUE: Multiple sonographic images of the right upper quadrant are obtained. FINDINGS: EXAM MEASUREMENTS: Liver Length: 15.9 cm Gallbladder Wall: 0.29 cm CBD: Obscured Right Kidney: 12.6 x 5.5 x 5.5 cm SPORTS MEDICINE COORDINATOR NOTES: Exam is limited due to gas and patient body habitus. Pancreas: Not well seen. Liver: Coarse echotexture. Nodular contour. No focal lesion seen. Gallbladder: Echogenic layering and shadowing material. No hydropic change, wall thickening, or surro unding fluid. Evidence for sonographic Alvarez's sign: No CBD: Obscured Right Kidney: No hydronephrosis. IMPRESSION: 1. Cirrhotic morphology of the liver. No sonographic evidence for hepatoma. 2. Layering gravel and small stones in the gallbladder. No hydropic change or surrounding fluid. 3. Unable to assess the bile duct. It is obscured by bowel gas/body habitus.
== END | disposition home or self-care (01) ==
LOC: RADUSWWP 13:00
PROVIDERS: ATTEND Internal Medicine Gastroenterology
DX: K70.31 Alcoholic cirrhosis of liver with ascites (principal); K80.20 Calculus of gallbladder without cholecystitis without obstruction; R14.0 Abdominal distension (gaseous)
CPT/HCPCS: 76705

== ENCOUNTER 2024-05-18 06:53 | Day surgery (SDC) | payer MEDICARE, OTHER ==
[2024-05-16 09:06] VITALS: BMI 36.3
[2024-05-18] MEDS: LACTATED RINGERS 1,000 ML IV SCH (07:26)
[2024-05-18 07:32] VITALS: TEMP 97.4
[2024-05-18] MEDS: IV FLUID CONTINUATION 1,000 ML IV ONE ×2 (07:34→07:44)
[2024-05-18 07:38] LABS: Glucose,Whole Blood 84 mg/dL (70-110)
[2024-05-18] MEDS ORDERED: PROPOFOL 10 MG/ML 20 ML VIAL IV ONE (07:45)
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
[2024-05-18 08:34] VITALS: BP 105/72; PULSE 64; RESP 18
--- NOTE | 2024-05-18 08:35 | P.PCN ---
Date of Procedure: 05/18/24 Description of Procedure: PREOPERATIVE DIAGNOSIS: Personal history of colon polyps Colonoscopy screening POSTOPERATIVE DIAGNOSIS: Tubular adenoma sigmoid colon OPERATION: Colonoscopy to the ileocecal valve and appendiceal orifice, cecum Colonoscopy with hot snare polypectomy SURGEON: Maye Kuhn MD. ANESTHESIA: MAC. INDICATIONS: The patient is an 59-year-old male who presents with personal history of colon polyps. Last colonoscopy 5 years. Benefits and risks were described and informed consent was obtained. DESCRIPTION OF PROCEDURE: The patient had undergone GoLytely prep. The patient had been brought into the operating room and laid in the left lateral decubitus position. After adequate intravenous sedation, the rectum was examined with 2% lidocaine jelly. The prostate was unremarkable. No external hemorrhoids were encountered. The rectal tone was within normal limits. No lesions were palpated in the rectal vault. An Olympus colonoscope was advanced until the cecum, ileocecal valve and appendiceal orifice were clearly viewed. The prep was good. No sigmoid diverticulosis was encountered. Colonic polyps were found and removed. No evidence of focal colitis was found. Retroflexion of the scope demonstrated grade 2 internal hemorrhoids without active bleeding or inflammation. The colon was desufflated. The patient had tolerated the procedure well. Withdrawal time was over 6 minutes. FINDINGS: Aronchick preparation quality scale 1+ (1-5) Internal hemorrhoids, grade 2 No external hemorrhoids No arteriovenous malformations. No large sigmoid diverticulosis Removal of 1 polyps: - Snare polypectomy 20 cm from the anal verge, sigmoid colon, 5 mm tubulovillous adenoma No focal colitis. RECOMMENDATIONS: Repeat colonoscopy in 3 years, 2026 Plan - Discharge Summary Discharge Rx Participant: No New Discharge Prescriptions: Continue Budesonide-Formot 160-4.5 Mcg [Symbicort 160-4.5 Mcg Inhaler] 2 puff INHALATION RT-DAILY PRN PRN Reason: Shortness Of Breath Montelukast Sodium [Singulair] 10 mg PO DAILY carvediloL [Coreg] 6.25 mg PO DAILY Folic Acid 1 mg PO DAILY Cetirizine HCl 10 mg PO DAILY Famotidine 20 mg PO HS Spironolactone 100 mg PO DAILY Apixaban [Eliquis] 2.5 mg PO BID Furosemide [Lasix] 40 mg PO DAILY Milk Thistle 250mg 500 mg PO DAILY Empagliflozin [Jardiance] 10 mg PO DAILY Clotrimazole/Betameth Cream [Lotrisone] 1 applic TOPICAL BID PRN PRN Reason: Dry Skin Hylands Leg Cramps 1 tab PO DAILY Probiotic Colon Support 1 tab PO DAILY Metamucil 3-In-1 Fiber Capsule 1 cap PO DAILY Acetaminophen [Tylenol] 500 mg PO Q4-6H PRN 7 Days #28 tab PRN Reason: Fever Albuterol Inhaler [Ventolin Hfa Inhaler] 1 puff INHALATION RT-QID #8 gm Ketoconazole 2% Shampoo [Nizoral] 1 applic TOPICAL MOWEFR PRN PRN Reason: Allergic Reaction Ketoconazole 2% Cream [Nizoral 2%] 1 applic TOPICAL DAILY PRN PRN Reason: Itching Discharge Medication List Budesonide-Formot 160-4.5 Mcg [Symbicort 160-4.5 Mcg Inhaler] 2 puff INHALATION RT-DAILY PRN 04/02/18 [History] Montelukast Sodium [Singulair] 10 mg PO DAILY 03/25/19 [History] carvediloL [Coreg] 6.25 mg PO DAILY 03/25/19 [History] Cetirizine HCl 10 mg PO DAILY 07/19/19 [History] Folic Acid 1 mg PO DAILY 07/19/19 [History] Famotidine 20 mg PO HS 04/11/20 [History] Spironolactone 100 mg PO DAILY 04/11/20 [History] Apixaban [Eliquis] 2.5 mg PO BID 03/15/21 [History] Clotrimazole/Betameth Cream [Lotrisone] 1 applic TOPICAL BID PRN 03/15/21 [History] Hylands Leg Cramps 1 tab PO DAILY 03/15/21 [History] Acetaminophen [Tylenol] 500 mg PO Q4-6H PRN 7 Days #28 tab 09/23/21 [Rx] Albuterol Inhaler [Ventolin Hfa Inhaler] 1 puff INHALATION RT-QID #8 gm 09/23/21 [Rx] Furosemide [Lasix] 40 mg PO DAILY 09/23/21 [History] Metamucil 3-In-1 Fiber Capsule 1 cap PO DAILY 09/23/21 [History] Milk Thistle 250mg 500 mg PO DAILY 09/23/21 [History] Probiotic Colon Support 1 tab PO DAILY 09/23/21 [History] Empagliflozin [Jardiance] 10 mg PO DAILY 08/07/22 [History] Ketoconazole 2% Cream [Nizoral 2%] 1 applic TOPICAL DAILY PRN 08/07/22 [History] Ketoconazole 2% Shampoo [Nizoral] 1 applic TOPICAL MOWEFR PRN 08/07/22 [History] Follow up Appointment(s)/Referral(s): Maye Kuhn MD [STAFF PHYSICIAN] - As Needed Patient Instructions/Handouts: *Surgery [facility] - (Anesthesia) Discharge Instructions Outpatient Surgery, Colorectal Polyps (GEN) Activity/Diet/Wound Care/Special Instructions: Repeat colonoscopy in 3 years, 2026 Discharge Disposition: HOME SELF-CARE
== END 2024-05-18 08:38 | disposition home or self-care (01) ==
LOC: ORWHC2ENDO 06:53
PROVIDERS: ATTEND Surgery Plastic and Reconstructive Surgery
DX: Z12.11 Encounter for screening for malignant neoplasm of colon (principal); D12.5 Benign neoplasm of sigmoid colon; K64.1 Second degree hemorrhoids; Z86.010 Personal history of colon polyps; J44.9 Chronic obstructive pulmonary disease, unspecified; K21.9 Gastro-esophageal reflux disease without esophagitis; G47.33 Obstructive sleep apnea (adult) (pediatric); E11.9 Type 2 diabetes mellitus without complications; K74.60 Unspecified cirrhosis of liver; K76.0 Fatty (change of) liver, not elsewhere classified; R01.1 Cardiac murmur, unspecified; I11.0 Hypertensive heart disease with heart failure; I50.9 Heart failure, unspecified; E66.01 Morbid (severe) obesity due to excess calories; Z68.36 Body mass index [BMI] 36.0-36.9, adult; Z88.2 Allergy status to sulfonamides; Z88.8 Allergy status to other drugs, medicaments and biological substances; Z88.1 Allergy status to other antibiotic agents; Z91.041 Radiographic dye allergy status; Z91.09 Other allergy status, other than to drugs and biological substances; Z79.01 Long term (current) use of anticoagulants; Z79.899 Other long term (current) drug therapy; Z79.84 Long term (current) use of oral hypoglycemic drugs
CPT/HCPCS: 88305; 45385; J2704

== ENCOUNTER → 2024-10-05 | Outpatient (CLI) | payer MEDICARE ==
--- NOTE | 2024-10-05 13:49 | XR ---
EXAMINATION TYPE: XR lumbar spine 2 or 3V DATE OF EXAM: 10/05/2024 CLINICAL HISTORY: Low back pain TECHNIQUE: Three views of the lumbar spine are submitted. COMPARISON: CT abdomen and pelvis 05/31/2021 FINDINGS: There are 5 lumbar type vertebral bodies identified. The lumbar spine shows satisfactory alignment w ithout evidence of acute fracture or dislocation. Vertebral body heights are within normal limits. Multilevel disc space narrowing with endplate sclerosis and anterior osteophytosis. Multilevel facet arthropathy. The overlying soft tissue appears unremarkable. Atherosclerotic calcification of the ao rta. IMPRESSION: 1. No acute fracture or dislocation is seen in the lumbar spine. 2. Moderate multilevel degenerative disc disease and facet arthropathy. [facility], , 10/05/2024 1:46 PM
== END | disposition home or self-care (01) ==
LOC: RADXRMAIN 13:26
PROVIDERS: ATTEND Family Medicine
DX: M51.369 Other intervertebral disc degeneration, lumbar region without mention of lumbar back pain or lower extremity pain (principal); M47.816 Spondylosis without myelopathy or radiculopathy, lumbar region; I70.0 Atherosclerosis of aorta
CPT/HCPCS: 72100

== ENCOUNTER → 2025-05-17 | Outpatient (CLI) | payer MEDICARE ==
--- NOTE | 2025-05-17 15:46 | XR ---
EXAMINATION TYPE: XR shoulder RT DATE OF EXAM: 05/17/2025 3:31 PM COMPARISON: None CLINICAL INDICATION: Male, 60 years old with history of M25.511 Pain in rt shoulder; [facility], pain TECHNIQUE: 3 views FINDINGS: Moderate degenerative joint space narrowing at the AC joint with capsular hypertrophy. Subacromial sp lu is preserved though with sclerosis of the greater tuberosity. No acute fracture, subluxation, dis location. Normal variant azygos fissure. IMPRESSION: Moderate degenerative joint space narrowing at the AC joint and bony changes suggesting chronic rotat or cuff tendinopathy. No acute osseous abnormality seen. [facility], Workstation: [facility], 05/17/2025 3:43 PM
== END | disposition home or self-care (01) ==
LOC: RADXRMAIN 15:02
PROVIDERS: ATTEND Family Medicine
DX: M19.011 Primary osteoarthritis, right shoulder (principal)